=== PATIENT | male | born 1930 | race Caucasian/White ===

== ENCOUNTER 2016-10-10 14:00 | Observation (INO) | payer OTHER ==
[2016-10-10] MEDS ORDERED: FAMOTIDINE 20 MG/NACL 50 ML IV ONE (14:28)
--- NOTE | 2016-10-10 14:28 | EDPHY ---
H & P Time Seen by Provider: 10/10/16 14:11 HPI/ROS: CHIEF COMPLAINT: blood in stool HISTORY OF PRESENT ILLNESS: Patient is an 86-year-old male who presents to the emergency department with bright red blood and dark stools starting last evening. Patient has no other complaints. He had a bowel movement where he noticed bright red in the toilet bowl. He has no rectal pain. No lightheadedness or dizziness. No chest pain or shortness of breath. No abdominal pain. No nausea, vomiting or fever. The patient has a remote history of diverticulitis and cannot recall if he had bleeding during that episode. REVIEW OF SYSTEMS: My complete review of systems is negative except as mentioned in the HPI. Past Medical/Surgical History: Includes diverticulitis, detached retina, hypertension, back infection Past surgical history: The detached retinal repair, back surgery for infection Social history: The patient does not smoke, drink or use drugs. He is here with his . Smoking Status: Never smoked Physical Exam: Vitals noted GENERAL: Well-appearing, in no acute distress, alert. HEENT: Eyes normal to inspection, normal pharynx, no signs of dehydration. NECK: No thyromegaly, no lymphadenopathy, supple. RESPIRATORY: Clear to auscultation bilaterally, no rales, rhonchi or wheezing. CVS: Regular rate and rhythm, no rubs, murmurs, or gallops. ABDOMEN: Soft, nontender, nondistended, no organomegaly. Benign Rectal exam: No palpable mass. No tenderness palpation. There is cammie blood as well as dark stool. BACK: Normal to inspection, no CVA tenderness. SKIN: Normal color, no rash, warm, dry. No pallor. EXTREMITIES: No pedal edema, no calf tenderness, no joint swelling. NEURO/PSYCH: Alert and oriented, normal mood and affect, normal motor sensory exam. Constitutional: Initial Vital Signs Temperature (C) 36.6 C 10/10/16 14:03 Heart Rate 77 10/10/16 14:03 Respiratory Rate 18 10/10/16 14:03 Blood Pressure 216/94 H 10/10/16 14:03 O2 Sat (%) 86 L 10/10/16 14:03 O2 Delivery Mode Room Air Allergies/Adverse Reactions: No Known Allergies Allergy (Verified 10/10/16 14:25) Home Medications: Medication Instructions Recorded Finasteride [Proscar 5 MG (*)] 5 mg PO DAILY 10/10/16 Furosemide [Lasix] 40 mg PO 10/10/16 Lisinopril [Zestril 40 mg (*)] 40 mg PO 10/10/16 Potassium Chloride Po [Klor 20 meq PO DAILY 10/10/16 Packets 20 meq (*)] Propranolol HCl [Inderal 40mg (*)] 40 mg PO 10/10/16 Tamsulosin HCl [Flomax 0.4 MG (*)] 0.4 mg PO 10/10/16 Tolterodine Tartrate [Detrol LA 2 mg PO DAILY8 10/10/16 2MG (*)] amLODIPine BESYLATE [Norvasc 2.5 2.5 mg PO DAILY 10/10/16 mg (*)] Medical Decision Making - Diagnostics EKG Interpretation: Sinus rhythm at 61. Right bundle branch block. ED Course/Re-evaluation: In the emergency department I discussed possible etiologies with the patient. I answered all his questions. IV was placed. Laboratory studies were obtained. I reviewed the patient's laboratory studies. White count is 9. Hematocrit slightly low at 39. Chemistry panel is pending. Occult blood is positive. I rechecked the patient. He was stable during his stay. However patient was noted to have dark stool on his rectal exam. He also has active rectal bleeding. Because of this he will be admitted for observation. I discussed this with Dr. Leon from the hospital service who agreed to admit the patient. I discussed the plan with the patient and answered all his questions. Differential Diagnosis: My differential includes but is not limited to external hemorrhoid, internal hemorrhoid, diverticulitis, malignancy, mass, upper GI bleed - Data Points Laboratory Results: Laboratory Results 10/10/16 14:25 10/10/16 14:25 10/10/16 10/10/16 14:25 14:18 WBC 9.85 H 10^3/uL (3.80-9.50) RBC 4.45 10^6/uL (4.40-6.38) Hgb 13.0 L g/dL (13.7-17.5) Hct 39.6 L % (40.0-51.0) MCV 89.0 fL (81.5-99.8) MCH 29.2 pg (27.9-34.1) MCHC 32.8 g/dL (32.4-36.7) RDW 14.6 % (11.5-15.2) Plt Count 304 10^3/uL (150-400) MPV 9.0 fL (8.7-11.7) Neut % (Auto) 71.1 % (39.3-74.2) Lymph % (Auto) 16.9 % (15.0-45.0) [place] % (Auto) 8.5 % (4.5-13.0) Eos % (Auto) 2.5 % (0.6-7.6) Baso % (Auto) 0.5 % (0.3-1.7) Nucleat RBC Rel Count 0.0 % (0.0-0.2) Absolute Neuts (auto) 7.00 H 10^3/uL (1.70-6.50) Absolute Lymphs (auto) 1.66 10^3/uL (1.00-3.00) Absolute Monos (auto) 0.84 H 10^3/uL (0.30-0.80) Absolute Eos (auto) 0.25 10^3/uL (0.03-0.40) Absolute Basos (auto) 0.05 10^3/uL (0.02-0.10) Absolute Nucleated RBC 0.00 10^3/uL (0-0.01) Immature Gran % 0.5 % (0.0-1.1) Immature Gran # 0.05 10^3/uL (0.00-0.10) PT 12.3 SEC (12.0-15.0) INR 0.92 (0.83-1.16) APTT 34.1 SEC (23.0-38.0) Sodium 146 H mEq/L (134-144) Potassium 4.2 mEq/L (3.5-5.2) Chloride 110 mEq/L (97-110) Carbon Dioxide 24 mEq/l (22-31) Anion Gap 12 mEq/L (8-16) BUN 16 mg/dL (7-23) Creatinine 0.8 mg/dL (0.7-1.3) Estimated GFR > 60 Glucose 90 mg/dL (70-100) Calcium 9.4 mg/dL (8.5-10.4) Stool Occult Bld Scrn POSITIVE H (NEGATIVE) Medications Given: Discontinued Medications Famotidine/Sodium Chloride (Pepcid 20 Mg (Premix)) 50 mls @ 200 mls/hr IV EDNOW ONE Stop: 10/10/16 14:42 Last Admin: 10/10/16 14:49 Dose: 50 mls Departure - Departure Disposition: [facility] Inpatient Acute Clinical Impression: Rectal bleed Condition: Good Referrals: Ezequiel Lucero [Primary Care Provider] - As per Instructions
[2016-10-10 14:38] LABS: % IMMATURE GRANULYOCYTES 0.5 % (0.0-1.1); ABSOLUTE IMMATURE GRANULOCYTES 0.05 10^3/uL (0.00-0.10); ADD DIFF? NO; ADD MORPH? NO; ADD SCAN? NO; ATYPICAL LYMPHOCYTE FLAG 0 (0-99); FRAGMENT RBC FLAG 0 (0-99); HEMATOCRIT 39.6 % (40.0-51.0); LEFT SHIFT FLG 0 (0-99); LIPEMIA HEMOLYSIS FLAG 80 (0-99); MEAN CELL HEMOGLOBIN 29.2 pg (27.9-34.1); MEAN CELL HEMOGLOBIN CONCENTR. 32.8 g/dL (32.4-36.7); PLATELET CLUMPS FLAG 10 (0-99); PLATELET COUNT 304 10^3/uL (150-400); RED BLOOD CELL COUNT 4.45 10^6/uL (4.40-6.38); RED CELL DISTRIBUTION WIDTH 14.6 % (11.5-15.2)
--- NOTE | 2016-10-10 14:46 | CPEKG ---
Heart Rate: 61 RR Interval: 984 P-R Interval: 164 QRSD Interval: 142 QT Interval: 448 QTC Interval: 452 P [place]: 15 QRS [place]: 83 T Wave [place]: -26 EKG Severity - ABNORMAL ECG - EKG Impression: SINUS RHYTHM EKG Impression: RIGHT BUNDLE BRANCH BLOCK Electronically Signed By: Alexsandra Godwin 10-Oct-2016 16:33:27
[2016-10-10 14:49] LABS: APTT 34.1 SEC (23.0-38.0); INR 0.92 (0.83-1.16); PROTIME(PATIENT) 12.3 SEC (12.0-15.0)
[2016-10-10 15:14] LABS: ANION GAP 12 mEq/L (8-16); CALCIUM 9.4 mg/dL (8.5-10.4); CARBON DIOXIDE 24 mEq/l (22-31); CHLORIDE 110 mEq/L (97-110); CREATININE 0.8 mg/dL (0.7-1.3); GLOMERULAR FILTRATION RATE > 60; GLUCOSE 90 mg/dL (70-100); POTASSIUM 4.2 mEq/L (3.5-5.2); SODIUM 146 mEq/L (134-144)
[2016-10-10] MEDS ORDERED: NS 1,000 ML IV ONE (15:22)
[2016-10-10] MEDS ORDERED: TEMAZEPAM 15 MG CAP PO PRN (16:15)
[2016-10-10] MEDS ORDERED: ONDANSETRON DISINTEGRATING 4 MG TAB PO PRN (16:15)
[2016-10-10] MEDS ORDERED: ONDANSETRON 4 MG/2 ML VIAL IVP PRN (16:15)
[2016-10-10] MEDS ORDERED: ACETAMINOPHEN 325 MG TAB PO PRN (16:15)
--- NOTE | 2016-10-10 16:25 | PDGENHP ---
History and Physical - Chief Complaint rectal bleeding - History of Present Illness 86 yo male with h/o hypertension and diverticulosis presents to ED with new onset rectal bleeding. He awoke at 2 am and felt the urge to have a BM. He passed "dark stool" with some bright red blood. He had 4 BM's over the course of the next 4 hrs with similar stool and blood. He estimates approximately 1 cup of blood loss in total. He has had no abdominal pain and no fevers. He denies CP, SOB, dizziness or light-headedness. No palpitations. He has h/o hypertension, did not take his BP meds yet today. Last colonoscopy was 7-8 yrs ago, at which time he was told he had diverticulosis. No h/o prior GI bleeds. Vital signs are stable upon arrival to the ED. GI was consulted by the ED and pt is admitted for further management. History Information - Allergies/Home Medication List Allergies/Adverse Reactions: No Known Allergies Allergy (Verified 10/10/16 14:25) Home Medications: Finasteride [Proscar 5 MG (*)] 5 mg PO DAILY 10/10/16 [Last Taken 10/09/16] Furosemide [Lasix] 40 mg PO DAILY 10/10/16 [Last Taken 10/09/16] Lisinopril [Zestril 40 mg (*)] 40 mg PO DAILY 10/10/16 [Last Taken 10/09/16] Potassium Cl [Klor-Con 20 meq (*)] 20 meq PO HS 10/10/16 [Last Taken 10/09/16] Propranolol HCl [Inderal 40mg (*)] 40 mg PO DAILY 10/10/16 [Last Taken 10/09/16] Tamsulosin HCl [Flomax 0.4 MG (*)] 0.4 mg PO DAILY 10/10/16 [Last Taken 10/09/16 ] Tolterodine Tartrate [Detrol LA 2MG (*)] 2 mg PO DAILY 10/10/16 [Last Taken ] amLODIPine BESYLATE [Norvasc 2.5 mg (*)] 2.5 mg PO DAILY 10/10/16 [Last Taken ] I have personally reviewed and updated: family history, medical history, social history, surgical history - Past Medical History hypertension - Surgical History Additional surgical history: recent back surgery for an infection. recent retinal detachment - Family History Positive for: non-pertinent - Social History Smoking Status: Never smoked Alcohol Use: None Drug Use: None (Lives independently with his .) Review of Systems ROS: 10pt was reviewed & negative except for what was stated in HPI & below Physical Exam Temp Pulse Resp BP Pulse Ox 36.6 C 88 18 180/78 H 93 10/10/16 14:03 10/10/16 16:00 10/10/16 16:00 10/10/16 16:00 10/10/16 16:00 Constitutional: no apparent distress Eyes: PERRL Ears, Nose, Mouth, Throat: moist mucous membranes Cardiovascular: regular rate and rhythym Respiratory: no respiratory distress, clear to auscultation Gastrointestinal: normoactive bowel sounds, soft, non-tender abdomen Skin: warm Neurologic: AAOx3 Psychiatric: interacting appropriately Lab Data & Imaging Review 10/10/16 20:14 10/10/16 14:25 WBC 9.85 10^3/uL (3.80-9.50) H 10/10/16 14:25 RBC 4.45 10^6/uL (4.40-6.38) 10/10/16 14:25 Hgb 13.0 g/dL (13.7-17.5) L 10/10/16 14:25 Hct 39.6 % (40.0-51.0) L 10/10/16 14:25 MCV 89.0 fL (81.5-99.8) 10/10/16 14:25 MCH 29.2 pg (27.9-34.1) 10/10/16 14:25 MCHC 32.8 g/dL (32.4-36.7) 10/10/16 14:25 RDW 14.6 % (11.5-15.2) 10/10/16 14:25 Plt Count 304 10^3/uL (150-400) 10/10/16 14:25 MPV 9.0 fL (8.7-11.7) 10/10/16 14:25 Neut % (Auto) 71.1 % (39.3-74.2) 10/10/16 14:25 Lymph % (Auto) 16.9 % (15.0-45.0) 10/10/16 14:25 [place] % (Auto) 8.5 % (4.5-13.0) 10/10/16 14:25 Eos % (Auto) 2.5 % (0.6-7.6) 10/10/16 14:25 Baso % (Auto) 0.5 % (0.3-1.7) 10/10/16 14:25 Nucleat RBC Rel Count 0.0 % (0.0-0.2) 10/10/16 14:25 Absolute Neuts (auto) 7.00 10^3/uL (1.70-6.50) H 10/10/16 14:25 Absolute Lymphs (auto) 1.66 10^3/uL (1.00-3.00) 10/10/16 14:25 Absolute Monos (auto) 0.84 10^3/uL (0.30-0.80) H 10/10/16 14:25 Absolute Eos (auto) 0.25 10^3/uL (0.03-0.40) 10/10/16 14:25 Absolute Basos (auto) 0.05 10^3/uL (0.02-0.10) 10/10/16 14:25 Absolute Nucleated RBC 0.00 10^3/uL (0-0.01) 10/10/16 14:25 Immature Gran % 0.5 % (0.0-1.1) 10/10/16 14:25 Immature Gran # 0.05 10^3/uL (0.00-0.10) 10/10/16 14:25 PT 12.3 SEC (12.0-15.0) 10/10/16 14:25 INR 0.92 (0.83-1.16) 10/10/16 14:25 APTT 34.1 SEC (23.0-38.0) 10/10/16 14:25 Sodium 146 mEq/L (134-144) H 10/10/16 14:25 Potassium 4.2 mEq/L (3.5-5.2) 10/10/16 14:25 Chloride 110 mEq/L (97-110) 10/10/16 14:25 Carbon Dioxide 24 mEq/l (22-31) 10/10/16 14:25 Anion Gap 12 mEq/L (8-16) 10/10/16 14:25 BUN 16 mg/dL (7-23) 10/10/16 14:25 Creatinine 0.8 mg/dL (0.7-1.3) 10/10/16 14:25 Estimated GFR > 60 10/10/16 14:25 Glucose 90 mg/dL (70-100) 10/10/16 14:25 Calcium 9.4 mg/dL (8.5-10.4) 10/10/16 14:25 Stool Occult Bld Scrn POSITIVE (NEGATIVE) H 10/10/16 14:18 Assessment & Plan Assessment: Rectal bleeding: DDx includes possible diverticular bleed vs hemorrhoidal vs upper GI source. He is hemodynamically stable. Will follow q6h H&H, give IV PPI, monitor on telemetry. GI is consulted. He will be given a clear liquid diet and will defer to GI regarding plans for scope. Hypertension: BP elevated on arrival near 200 systolic. He has not taken his home meds. Will give his Lisinopril and Norvasc now with prn Hydralazine. Continue other meds once med rec is completed Full code DVT PPLX - SCD's Dispo - obs
[2016-10-10] MEDS: LISINOPRIL 40 MG TAB PO SCH (17:26)
[2016-10-10] MEDS ORDERED: GOLYTELY 4000 ML BTL PO ONE (19:14)
[2016-10-10] MEDS: hydrALAZINE 25 MG TAB PO PRN (19:39)
--- NOTE | 2016-10-10 19:40 | GCON ---
[f rep st] CONSULTATION REFERRING PHYSICIAN: Lazara Leon MD REASON FOR CONSULTATION: Rectal bleeding. CHIEF COMPLAINT: Rectal bleeding. HISTORY OF PRESENT ILLNESS: Briefly, Mr. Herrera is a pleasant 86-year-old male with a history of hypertension and diverticulosis, who presented to the emergency room today for the evaluation of rectal bleeding. He reports that he awoke early this a.m. with the urgent need to have a bowel movement. He describes having passed bright red and dark blood. He had several bowel movements over the course of the next several hours that were similarly emergent and filled with blood. He reports initially noticing mostly red blood , but also describing some dark blood. He believes he may have had a cup or more of blood with each bowel movement. He reported no abdominal pain. He denies vomiting or nausea. He reports no shortness of breath, dizziness, or lightheadedness. He further denies chest pain and palpitations. He reports that as the symptoms continued through the morning, he presented to the emergency room to seek a workup given that he was concerned about the bleeding. He reports he had a colonoscopy approximately 8 years ago. He reports no polyps or malignancy history. Further denies any family history of colon cancer or colon polyps. At that time, he was advised that would likely be his last colonoscopy. Since being in the hospital, he has had no further bowel movements, and reports he has passed some gas. ALLERGIES: None. MEDICATIONS ON ADMISSION: Included Proscar, Lasix, Zestril, Inderal, Flomax, Detrol, Norvasc, and potassium. PAST MEDICAL HISTORY: Includes hypertension and back disease for which he has had back surgery. He had complications of his back surgery with infection. FAMILY HISTORY: Negative for colon cancer and colon polyps. SOCIAL HISTORY: He does not smoke. He does not use alcohol. He does not use drugs. REVIEW OF SYSTEMS: A complete 14 system review was undertaken with the patient and is negative, except for those details described in the history of present illness. PHYSICAL EXAM: GENERAL: This is an elderly pleasant male, in no apparent distress. HEENT: His pupils are equally round, reactive to light and accommodation. His sclerae are nonicteric. His oropharynx is clear. NECK: Supple without lymphadenopathy. HEART: Regular without murmur. LUNGS: Clear with good respiratory effort. ABDOMEN: Soft. Nondistended without tenderness. There is no rebound or guarding. EXTREMITIES: Free of cyanosis, clubbing, edema. NEURO: Grossly nonfocal. SKIN: Warm and dry. MUSCULOSKELETAL: His joints show no arthritis. PSYCH: Reveals normal mood and affect. LABORATORY: Shows a white count of 9.8, hemoglobin of 13.0, hematocrit of 39.6. INR of 0.92. Basic metabolic panel is normal. Prior hematocrits of note have been between 32 and 41 over the last many years. Most recently through 2016, his hematocrit has been between 36 and 42. IMPRESSION AND PLAN: Bright red blood. The differential diagnosis for his bleeding is broad. It likely is a lower GI source and given his known history of diverticulosis, that seems likely. The differential however, could include polyps, AVM, malignancy, or even upper intestinal sources of bleeding. At this time, I recommend he undergo an endoscopic evaluation for sources of bleeding. This should include colonoscopy, as well as upper endoscopy given the dark nature of his blood and the differential diagnosis that contains upper sources, as well as lower sources. He can have clear liquids through the rest of today and we will initiate a split -dose laxative prep starting today for endoscopic evaluation tomorrow. Given his obesity and his age, and his sleep apnea, he will be at increased risk of conscious sedation, but I do not think those risks outweigh the potential benefits. /[id number]/MODL MTDD
[2016-10-10 20:49] LABS: HEMATOCRIT 33.6 % (40.0-51.0)
[2016-10-10] MEDS ORDERED: POTASSIUM CL 20 MEQ TAB PO SCH (21:00)
[2016-10-10] MEDS: PANTOPRAZOLE SODIUM 40 MG in NS 100 ML IV SCH (21:33)
[2016-10-11 01:52] LABS: HEMATOCRIT 33.2 % (40.0-51.0)
[2016-10-11] MEDS: hydrALAZINE 25 MG TAB PO PRN (03:55)
[2016-10-11 04:30] LABS: ANION GAP 7 mEq/L (8-16); CALCIUM 8.7 mg/dL (8.5-10.4); CARBON DIOXIDE 24 mEq/l (22-31); CHLORIDE 115 mEq/L (97-110); CREATININE 0.8 mg/dL (0.7-1.3); GLOMERULAR FILTRATION RATE > 60; GLUCOSE 78 mg/dL (70-100); POTASSIUM 4.2 mEq/L (3.5-5.2); SODIUM 146 mEq/L (134-144)
[2016-10-11 08:25] LABS: HEMATOCRIT 34.1 % (40.0-51.0); HEMOGLOBIN 11.3 g/dL (13.7-17.5)
[2016-10-11] MEDS: PANTOPRAZOLE SODIUM 40 MG in NS 100 ML IV SCH (08:40)
[2016-10-11] MEDS ORDERED: FUROSEMIDE 40 MG TAB PO SCH (09:00)
[2016-10-11] MEDS ORDERED: TOLTERODINE TARTRATE 2 MG EXT REL CAP PO SCH (09:00)
[2016-10-11] MEDS ORDERED: FINASTERIDE 5 MG TAB PO SCH (09:00)
[2016-10-11] MEDS ORDERED: PROPRANOLOL HCL 40 MG TAB PO SCH (09:00)
[2016-10-11] MEDS ORDERED: TAMSULOSIN HCL 0.4 MG CAP PO SCH (09:00)
[2016-10-11] MEDS ORDERED: LISINOPRIL 40 MG TAB PO SCH (09:00)
[2016-10-11] MEDS ORDERED: PROPOFOL/EMULSION 500 MG/50 ML BOTTLE IV ONE (13:13)
[2016-10-11] MEDS ORDERED: epHEDrine SULFATE 10 MG/ML SYR ONE (13:39)
--- NOTE | 2016-10-11 14:03 | SUROPNOTE ---
SOO Operative Report - Surgery BRIEF GI NOTE (full report pending) EGD/COLON Indication: melena, rectal bleeding Complications: none Meds: per anesthesia Findings: EGD - nl esophagus - mild-moderate gastritis (bx'd) - nl duodenum COLON - bright red blood was found in left colon - no active bleeding - multiple tics throughout colon, most concentrated in left colon - normal bilious effluent from IC valve - moderate hemorrhoids IMPRESSION 1. GI BLEED - suspect self limited diverticular or hemorrhoid related bleeding - ok to advance diet and dc home if clinically well - if has recurrent bleeding, will need to consider additional eval - will sign off, call with questions
--- NOTE | 2016-10-11 14:24 | GPN ---
[f rep st] PROCEDURE NOTE PROCEDURES: Upper endoscopy and lower endoscopy. INDICATIONS: Melena and hematochezia. MEDICATIONS USED: Anesthesia was administered by our Anesthesia colleagues. This was deemed necessary due to the patient's underlying obesity and chronic obstructive sleep apnea. COMPLICATIONS: None acutely. DESCRIPTION OF PROCEDURE: After informed consent was obtained, the patient was placed in the left lateral decubitus position, and the forward viewing upper endoscope was advanced through the mouth into the proximal duodenum. Retroflex views in the gastric cardia were obtained. The scope was then withdrawn. The gurney was rotated 180 degrees. The forward viewing colonoscope was then advanced through the rectum into the cecum. The cecum was identified by the appendiceal orifice and the ileocecal valve. FINDINGS: Upper endoscopy: 1. Mild gastritis was visualized throughout the entire gastric antrum. There were no ulcerations. There was no evidence of acute bleeding. Biopsies were obtained. 2. The esophagus looked normal. 3. The duodenal appeared normal. Colonoscopy: 1. Multiple diverticula were discovered through the sigmoid colon. There were also some discovered in the right-side colon. 2. Bright red blood was visualized throughout the left colon in the area of the diverticula. There was no bright red blood visualized in the right colon or in the effluent coming through the ileocecal valve. 3. Internal hemorrhoids were also visualized. These were grade 2-3, but nonbleeding. There was no evidence of thrombosis. IMPRESSION AND RECOMMENDATIONS: Overall, I suspect that Mr. Herrera has had a self-limited bleeding event from diverticula. It is possible that he had a self-limited bleeding event from hemorrhoids as well. There were no other more sinister lesions, such as polyps , cancers, ulcers, etc. At this time, I recommend he advance his diet and be considered for discharge home if he is feeling well. Should he have recurrence of bleeding, we would consider a repeat bleeding workup which might include endoscopic evaluation and /or x-ray. /[id number]/MODL MTDD
--- NOTE | 2016-10-11 15:44 | GDS ---
[f rep st] DISCHARGE SUMMARY DISCHARGE DIAGNOSIS: Gastrointestinal bleed. PHYSICAL EXAM: VITAL SIGNS: Afebrile at 36.4, pulse is 59, respiratory rate is 18, blood pressure i s 155/51. He is saturating 96% on room air. I have seen and evaluated the patient on the day of dis charge. HOSPITAL COURSE: Mr. Herrera is an 86-year-old male, who presented to the emergency room with complai nts of rectal bleeding. He was evaluated during this hospitalization with a colonoscopy, as well as endoscopy. He received a consultation from Dr. Moon of Gastroenterology. His colonoscopy represen bryce hemorrhoids with likely self-limiting diverticular bleed. His EGD noted mild gastritis. The pat ient has had no further signs of gastrointestinal bleeding. His laboratory evaluation has remained s table. His vital signs are within normal limits. He will be initiated on oral Protonix which a pres cription has been provided, and he will be discharged home to follow up in the outpatient setting wit h his primary care physician. PENDING STUDIES: Include biopsy pathology. DISCHARGE MEDICATIONS: Please refer to EMR form. I have provided the patient a prescription for Pro tonix 40 mg daily, #90. FOLLOWUP: Will be with Dr. Ezequiel Lucero, his primary care physician. I have discussed the patient's care and discharge plan with Dr. Moon of Gastroenterology. He is in agreement with this plan. /[id number]/MODL
[2016-10-11] MEDS: LISINOPRIL 40 MG TAB PO SCH (16:25)
[2016-10-11 16:26] VITALS: BP 187/92; PULSE 60
[2016-10-11 16:30] VITALS: RESP 19; TEMP 97.9
[2016-10-11 16:42] VITALS: O2SAT 88
== END 2016-10-11 17:58 | disposition home or self-care (01) ==
LOC: F3E 16:51
PROVIDERS: ADMIT Hospitalist; ATTEND Hospitalist
DX: K92.2 Gastrointestinal hemorrhage, unspecified (principal); K29.70 Gastritis, unspecified, without bleeding; K57.30 Diverticulosis of large intestine without perforation or abscess without bleeding; K64.8 Other hemorrhoids; G47.33 Obstructive sleep apnea (adult) (pediatric); E66.9 Obesity, unspecified; I10 Essential (primary) hypertension
CPT/HCPCS: 43239; 45378; 88305; 88342; 93005; G0378; J2704; 96365

== ENCOUNTER 2017-11-01 22:00 | Emergency (ER) | payer OTHER ==
--- NOTE | 2017-11-01 22:16 | CPEKG ---
Heart Rate: 47 RR Interval: 1277 P-R Interval: 177 QRSD Interval: 152 QT Interval: 508 QTC Interval: 450 P [place]: 5 QRS [place]: 77 T Wave [place]: -42 EKG Severity - ABNORMAL ECG - EKG Impression: SINUS BRADYCARDIA EKG Impression: RIGHT BUNDLE BRANCH BLOCK Electronically Signed By: Alessandro Sawyer 02-Nov-2017 05:29:09
--- NOTE | 2017-11-01 22:19 | EDPHY ---
H & P Stated Complaint: trip and fall Time Seen by Provider: 11/01/17 22:15 HPI/ROS: HPI: This 87-year-old male who presents with Chief Complaint: Trip and fall onto his knee Location: Bilateral knee Quality: Fall Duration: Prior to arrival Signs and Symptoms: No bleeding, no radiation, no numbness, no weakness, no tingling, no incontinence, no decreased range of motion, no swelling, no pain Timing: Severity: Context: Patient arrived via EMS with no complaints. He reports that his was concerned as he is unable to get up off the floor after he accidentally tripped in the [place] and fell onto both of his knees. He reports that he felt some pain at 1st but has decreased during the ride to the emergency room. EMS reports that patient did not want to come to the ER for further evaluation but his insisted. They have been for over 50+ years. He denies any chest pain/LOC/shortness of breath/urinary symptoms/abdominal pain/nausea/ vomiting/neck pain. He reports that his heart rate normally runs low. He he takes for blood pressure medications but did not take them today. He reports that he wears oxygen 2 L nasal cannula at night for sleep apnea. Will wait for to arrive to gather further information. and son her now at bedside. reports that patient was in the bedroom and she could hear him trip and fall. He was on his knees when she arrived in their bedroom. He was alert and talking. She reports that he is too heavy for her to lift him up so she called EMS. He wears a hearing aid in for the last 4 days he has been ignoring her more than usual. She is not sure if there is something wrong with his head or refused nor in her. reports that he takes all of his medications at night and has not taken them tonight. Unsure of dosage of medications. Patient denies chest pain/shortness of breath/abdominal pain/headache/dizziness/weakness /urinary symptoms. Modifying Factors: None Comment: ROS: see HPI Constitutional: No fever, no chills, no weight loss Eyes: No blurred vision Respiratory: No shortness of breath, no cough Cardiovascular: No chest pain Gastrointestinal: No nausea, no vomiting no diarrhea Genitourinary: No dysuria Extremities: No myalgias Neurologic: No weakness, no numbness Skin: No rashes Hematologic: No bruising, no bleeding MEDICAL/SURGICAL/SOCIAL HISTORY: PMH- Hypertension, DIVERTICULOSIS, ENRIKE PSH- DETACHED RETINA REPAIR B EYE, BACK SURGERY S/P 6MONTHS AGO. Social history: for over 50 years. CONSTITUTIONAL: Pleasant, cooperative elderly white male, awake and alert, no obvious distress HEENT: Atraumatic and normocephalic, PERRL, EOMI. no globe entrapment, no raccoon eyes. no Morris signs.Tympanic membranes clear. No tympanic membrane rupture. Nares patent; no septal hematoma. Oropharynx clear, no exudate and moist pink mucosa. No malocclusion. no dental trauma. Airway patent. No lymphadenopathy. NECK: supple, no midline tenderness, flexion 45 degrees, extension 45 degrees, right and left lateral flexion 45 degrees. No meningismus. Cardiovascular: Normal S1/S2, bradycardia, regular rhythm, without murmur rub or gallop. PULMONARY/CHEST: Symmetrical and nontender. no crepitus. Clear to auscultation bilaterally. Good air movement. No accessory muscle usage. ABDOMEN: Soft, nondistended, nontender, no ecchymosis, no rebound, no guarding , no peritoneal signs, no masses or organomegaly. No CVAT. PELVIC: no pain with rocking; bilateral hips flexion 125 degrees, extension 30 degrees, with no pain internal rotation and no pain external rotation. BACK: No midline tenderness, no paraspinous spasm, deep tendon reflexes 2/2, no pain with straight leg raise EXTREMITIES: 2/2 pulses, bilateral KNEE: Superficial abrasion noted to anterior portion approximately 2 cm annular, no effusion, medial and lateral joint line tenderness, full extension to 180, flexion to 120. No pain with varus and valgus exam. No pain with anterior drawer or posterior drawer test. no deformities, no clubbing, no cyanosis or edema. NEUROLOGICAL: no focal neuro deficits. GCS 15. SKIN: Warm and dry, pallor,no erythema. no rash. Good capillary refill. Source: Patient, Family ( and son) Exam Limitations: No limitations - Personal History Current Tetanus/Diphtheria Vaccine: Yes Current Tetanus Diphtheria and Acellular Pertussis (TDAP): Yes - Medical/Surgical History Hx Asthma: No Hx Chronic Respiratory Disease: No Hx Diabetes: No Hx Cardiac Disease: Yes Hx Renal Disease: No Hx Cirrhosis: No Hx Alcoholism: No Hx HIV/AIDS: No Hx Splenectomy or Spleen Trauma: No Other PMH: PMH- Hypertension, DIVERTICULOSIS. PSH- DETACHED RETINA REPAIR B EYE , BACK SURGERY S/P 6MONTHS AGO. - Social History Smoking Status: Never smoked Constitutional: Initial Vital Signs Temperature (C) 36.6 C 11/01/17 22:07 Heart Rate 50 L 11/01/17 22:07 Respiratory Rate 16 11/01/17 22:07 Blood Pressure 235/85 H 11/01/17 22:07 O2 Sat (%) 92 11/01/17 22:07 O2 Delivery Mode Nasal Cannula Allergies/Adverse Reactions: No Known Allergies Allergy (Verified 11/01/17 22:05) Home Medications: Medication Instructions Recorded Finasteride [Proscar 5 MG (*)] 5 mg PO DAILY 10/10/16 Furosemide [Lasix 40 MG (*)] 40 mg PO DAILY 10/10/16 Lisinopril [Zestril 40 mg (*)] 40 mg PO DAILY 10/10/16 Potassium Cl [Klor-Con 20 meq (*)] 20 meq PO HS 10/10/16 Propranolol HCl [Inderal 40mg (*)] 40 mg PO DAILY 10/10/16 Tamsulosin HCl [Flomax 0.4 MG (*)] 0.4 mg PO DAILY 10/10/16 Tolterodine Tartrate [Detrol LA 2 mg PO DAILY 10/10/16 2MG (*)] amLODIPine BESYLATE [Norvasc 2.5 2.5 mg PO DAILY 10/10/16 mg (*)] Acetaminophen [Tylenol 325mg (*)] 650 mg PO Q4HRS PRN #0 tab 10/11/16 Pantoprazole Sodium [Protonix 40mg 40 mg PO DAILY #90 tab 10/11/16 (*)] Medical Decision Making - Diagnostics EKG Interpretation: 12 lead EKG: Indication: Fall Rhythm: sinus bradycardia, rate 47 bpm [place]: Normal Intervals: Normal QRS: RBBB ST segments: Nonspecific changes EKG INTERPRETATION: Right bundle-branch block is old, acute ischemic changes The 12 lead EKG was interpreted by myself and with attending. Imaging Results: Imaging Impressions Head CT 11/01/17 22:37 Impression: 1. Moderate atrophy. 2. No acute hemorrhage, hydrocephalus, or mass effect. 3. Cerebrovascular atherosclerosis. 4. No definite acute infarct. 5. Moderate microvascular ischemic gliosis. 6. No epidural or subdural hematoma. Findings and recommendations discussed with Emergency Department physician, Kayy Forman at 23:09 hour, 11/01/2017. Final report concurs with initial preliminary interpretation. ED Course/Re-evaluation: Bilateral knee x-ray, head CT scan, EKG, labs, urinalysis ordered Vital signs reviewed upon arrival: Heart rate 45-55 beats per minute with significant elevated blood pressure; son left to get evening blood pressure medications as unsure of dosage. 2310: Repeat blood pressure is systolic 180/[address] scan shows no acute intracranial process. Labs reviewed and show no gross abnormality. Urinalysis shows no signs of infection. reports that the patient's blood pressure is always elevated when he goes to the Dr. 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 Patient was ambulated; walked up and down the [place] without any dizziness/chest pain/shortness of breath I offered admission for tighter blood pressure control and close monitoring; but patient//son want to be discharged home. We will increase his amlodipine and decrease Propranolol with close follow-up with PCP and Cardiology. Son reports that he will be making daily house calls and will make sure that his father gets to the appropriate appointments. This patient was seen under the supervision of my secondary supervising physician. I evaluated care for this patient independently. Differential Diagnosis: Dizziness including but not limited to peripheral and central causes of vertigo , orthostatic causes including dehydration, and blood loss. - Data Points Laboratory Results: Laboratory Results 11/01/17 22:20 11/01/17 22:20 11/01/17 11/01/17 11/01/17 23:20 22:20 22:20 WBC 8.76 10^3/uL 10^3/uL (3.80-9.50) RBC 4.77 10^6/uL 10^6/uL (4.40-6.38) Hgb 14.9 g/dL g/dL (13.7-17.5) Hct 43.1 % % (40.0-51.0) MCV 90.4 fL fL (81.5-99.8) MCH 31.2 pg pg (27.9-34.1) MCHC 34.6 g/dL g/dL (32.4-36.7) RDW 14.2 % % (11.5-15.2) Plt Count 231 10^3/uL 10^3/uL (150-400) MPV 8.9 fL fL (8.7-11.7) Neut % (Auto) 74.1 % % (39.3-74.2) Lymph % (Auto) 9.8 % L % (15.0-45.0) [place] % (Auto) 12.1 % % (4.5-13.0) Eos % (Auto) 3.3 % % (0.6-7.6) Baso % (Auto) 0.5 % % (0.3-1.7) Nucleat RBC Rel Count 0.0 % % (0.0-0.2) Absolute Neuts (auto) 6.49 10^3/uL 10^3/uL (1.70-6.50) Absolute Lymphs (auto) 0.86 10^3/uL L 10^3/uL (1.00-3.00) Absolute Monos (auto) 1.06 10^3/uL H 10^3/uL (0.30-0.80) Absolute Eos (auto) 0.29 10^3/uL 10^3/uL (0.03-0.40) Absolute Basos (auto) 0.04 10^3/uL 10^3/uL (0.02-0.10) Absolute Nucleated RBC 0.00 10^3/uL 10^3/uL (0-0.01) Immature Gran % 0.2 % % (0.0-1.1) Immature Gran # 0.02 10^3/uL 10^3/uL (0.00-0.10) Sodium 145 mEq/L mEq/L (135-145) Potassium 4.1 mEq/L mEq/L (3.5-5.2) Chloride 113 mEq/L H mEq/L (97-110) Carbon Dioxide 22 mEq/l mEq/l (22-31) Anion Gap 10 mEq/L mEq/L (8-16) BUN 22 mg/dL mg/dL (7-23) Creatinine 0.9 mg/dL mg/dL (0.7-1.3) Estimated GFR > 60 Glucose 107 mg/dL H mg/dL (70-100) Calcium 9.7 mg/dL mg/dL (8.5-10.4) Total Bilirubin 0.6 mg/dL mg/dL (0.1-1.4) Conjugated Bilirubin 0.3 mg/dL mg/dL (0.0-0.5) Unconjugated Bilirubin 0.3 mg/dL mg/dL (0.0-1.1) AST 20 IU/L IU/L (17-59) ALT 26 IU/L IU/L (21-72) Alkaline Phosphatase 113 IU/L IU/L (38-126) Troponin I < 0.012 ng/mL ng/mL (0.000-0.034) Total Protein 6.6 g/dL g/dL (6.3-8.2) Albumin 3.9 g/dL g/dL (3.5-5.0) Urine Color YELLOW Urine Appearance HAZY Urine pH 6.0 (5.0-7.5) Ur Specific [place] 1.020 (1.002-1.030) Urine Protein NEGATIVE (NEGATIVE) Urine Ketones NEGATIVE (NEGATIVE) Urine Blood 1+ H (NEGATIVE) Urine Nitrate NEGATIVE (NEGATIVE) Urine Bilirubin NEGATIVE (NEGATIVE) Urine Urobilinogen NEGATIVE EU EU (0.2-1.0) Ur Leukocyte Esterase NEGATIVE (NEGATIVE) Urine RBC 5-10 /hpf H /hpf (0-3) Urine WBC 1-3 /hpf /hpf (0-3) Ur Epithelial Cells Not Reported Urine Mucus TRACE /lpf /lpf (NONE-1+) Urine Glucose NEGATIVE (NEGATIVE) Departure - Departure Disposition: Home, Routine, Self-Care Clinical Impression: Essential (primary) hypertension, Bradycardia with less than 60 beats per minute Adverse effect of beta-davis Qualifiers: Encounter type: initial encounter Qualified Code(s): T44.7X5A - Adverse effect of beta-adrenoreceptor antagonists, initial encounter Condition: Good Instructions: Bradycardia (ED), Hypertension (ED) Additional Instructions: Continue to take Lisinopril and Lasix as prescribed. Increase Amlodipine from 2.5 mg to 5 mg daily. Decrease Propranolol from 40 mg to 20 mg daily. Take patient's blood pressure tonight before bed and in the morning. Follow-up with your primary care provider in the next 2-3 days for blood pressure and heart rate monitoring. Follow-up with Cardiology in the next 1 week to discuss hypertension and bradycardia. Do not drive your vehicle until you are cleared by a physician. If at any time; patient develops chest pain, shortness of breath, intractable headache, mental status changes; return to the emergency room immediately. Referrals: Ezequiel Lucero [Primary Care Provider] - As per Instructions Francisco Wood MD [Medical Doctor] - As per Instructions
[2017-11-01 22:31] LABS: PLATELET COUNT 231 10^3/uL (150-400)
[2017-11-02 00:14] VITALS: BP 194/81; PULSE 46; RESP 20; TEMP 97.5; O2SAT 94
== END 2017-11-02 00:19 | disposition home or self-care (01) ==
LOC: EDUNIT#
DX: R00.1 Bradycardia, unspecified (principal); T44.7X5A Adverse effect of beta-adrenoreceptor antagonists, initial encounter; I10 Essential (primary) hypertension

== ENCOUNTER 2018-03-01 12:23 | Inpatient (IN) | payer OTHER ==
--- NOTE | 2018-03-01 13:24 | EDPHY ---
H & P Stated Complaint: poss sepsis Time Seen by Provider: 03/01/18 13:12 HPI/ROS: CHIEF COMPLAINT: Shortness of breath, vomiting Limitations: Dementia, patient unable to give any clinical history HISTORY OF PRESENT ILLNESS: 87-year-old male presents with shortness of breath and vomiting. He had a Lemons catheter in place this morning and apparently was suppose to discontinue the Lemons catheter. When the Lemons catheter was removed , he had a copious amount of gross hematuria. EMS was called and on their arrival, he was very short of breath and had multiple episodes of vomiting. IV normal saline 1 L and Zofran 4 mg IV given. Oxygen applied for shortness of breath. REVIEW OF SYSTEMS: Unable to determine - Personal History Current Tetanus Diphtheria and Acellular Pertussis (TDAP): Unsure - Medical/Surgical History Hx Asthma: No Hx Chronic Respiratory Disease: No Hx Diabetes: No Hx Cardiac Disease: Yes Hx Renal Disease: No Hx Cirrhosis: No Hx Alcoholism: No Hx HIV/AIDS: No Hx Splenectomy or Spleen Trauma: No Other PMH: PMH- Hypertension, DIVERTICULOSIS. PSH- DETACHED RETINA REPAIR B EYE , BACK SURGERY S/P 6MONTHS AGO. - Social History Smoking Status: Never smoked - Physical Exam Exam: General Appearance: Alert, pleasant Eyes: Pupils equal and round, no conjunctival pallor ENT, Mouth: Mucous membranes dry Neck: Normal inspection Respiratory: Tachypnea, Rales at the right lung base Cardiovascular: Regular tachycardia Gastrointestinal: Abdomen is soft and nontender Genitourinary: Dripping bright red blood from urethral orifice Neurological: Alert, oriented to self, moves all extremities Skin: Warm and dry Extremities: Normal inspection Psychiatric: Mood and affect normal Constitutional: Initial Vital Signs Temperature (C) 38.7 C H 03/01/18 12:42 Heart Rate 108 H 03/01/18 12:42 Respiratory Rate 40 H 03/01/18 12:42 Blood Pressure 213/104 H 03/01/18 12:42 O2 Sat (%) 84 L 03/01/18 12:42 O2 Delivery Mode Oxymask O2 (L/minute) 10 Allergies/Adverse Reactions: No Known Allergies Allergy (Verified 11/01/17 22:05) Home Medications: Medication Instructions Recorded Finasteride [Proscar 5 MG (*)] 5 mg PO DAILY 10/10/16 Furosemide [Lasix 40 MG (*)] 40 mg PO DAILY 10/10/16 Lisinopril [Zestril 40 mg (*)] 40 mg PO DAILY 10/10/16 Potassium Cl [Klor-Con 20 meq (*)] 20 meq PO HS 10/10/16 Propranolol HCl [Inderal 40mg (*)] 20 mg PO BID 10/10/16 Tamsulosin HCl [Flomax 0.4 MG (*)] 0.4 mg PO DAILY 10/10/16 Tolterodine Tartrate [Detrol LA 2 mg PO DAILY 10/10/16 2MG (*)] amLODIPine BESYLATE [Norvasc 2.5 2.5 mg PO DAILY 10/10/16 mg (*)] Pantoprazole Sodium [Protonix 40mg 40 mg PO BID 03/01/18 (*)] Medical Decision Making - Diagnostics EKG Interpretation: EKG interpreted by me reveals normal sinus rhythm, rate 94, right bundle branch block. Interpretation abnormal EKG Imaging Results: Imaging Impressions Chest X-Ray 03/01/18 13:14 Impression: Mild patchy atelectasis or scarring in the lower lobes bilaterally, without focal infiltrate or pleural effusion.. ED Course/Re-evaluation: This patient presents with shortness of breath, fever and vomiting. He meets SIRS criteria with tachycardia and fever. Initial lactate is 2.6. IV fluids per the sepsis protocol initiated. Repeat lactate is 2.8. Chest x-ray does not reveal an obvious infiltrate, however I suspect that he has pneumonia. Blood cultures were drawn and Levaquin IV given for pneumonia. After IV fluids and Tylenol, the patient's heart rate normalized and he looked much better. He was still unable to provide any clinical history. A Lemons catheter was placed for gross hematuria. After irrigation, the hematuria resolved and the urine is clear. The hospitalist service was consulted for admission. I spent a total of 35 minutes of critical care time in obtaining history, performing a physical exam, bedside monitoring of interventions, collecting and interpreting tests and discussion with consultants but not including time spent performing procedures. Organ at risk: pulmonary Differential Diagnosis: Differential diagnosis includes pyelonephritis, cholecystitis, influenza, cellulitis, pneumonia, abscess, meningitis. - Data Points Laboratory Results: Laboratory Results 03/01/18 12:30 03/01/18 12:30 03/01/18 03/01/18 03/01/18 13:50 12:30 12:30 WBC RBC Hgb Hct MCV MCH MCHC RDW Plt Count MPV Neut % (Auto) Lymph % (Auto) [place] % (Auto) Eos % (Auto) Baso % (Auto) Nucleat RBC Rel Count Absolute Neuts (auto) Absolute Lymphs (auto) Absolute Monos (auto) Absolute Eos (auto) Absolute Basos (auto) Absolute Nucleated RBC Immature Gran % Seg Neutrophils % Band Neutrophils % Lymphocytes % Monocytes % Eosinophils % Basophils % Metamyelocytes % Myelocytes % Promyelocytes % Blast Cells % Immature Gran # Absolute Seg Neuts Absolute Band Neuts Absolute Lymphocytes Absolute Monocytes Absolute Eosinophils Absolute Basophils Absolute Metamyelocyte Absolute Myelocytes Absolute Promyelocytes Absolute Plasma Cells RBC/WBC/PLT Morphology Absolute Blast Cells Plasma Cells % Platelet Estimate PT 12.9 SEC SEC (12.0-15.0) INR 0.95 (0.83-1.16) APTT 25.2 SEC SEC (23.0-38.0) VBG Lactic Acid 2.8 mmol/L H mmol/L (0.7-2.1) Sodium 148 mEq/L H mEq/L (135-145) Potassium 4.7 mEq/L mEq/L (3.3-5.0) Chloride 107 mEq/L mEq/L (97-110) Carbon Dioxide 26 mEq/l mEq/l (22-31) Anion Gap 15 mEq/L mEq/L (8-16) BUN 19 mg/dL mg/dL (7-23) Creatinine 0.9 mg/dL mg/dL (0.7-1.3) Estimated GFR > 60 Glucose 104 mg/dL H mg/dL (70-100) Calcium 9.7 mg/dL mg/dL (8.5-10.4) Total Bilirubin 1.1 mg/dL mg/dL (0.1-1.4) 03/01/18 03/01/18 12:30 12:30 WBC 9.51 10^3/uL H 10^3/uL (3.80-9.50) RBC 5.28 10^6/uL 10^6/uL (4.40-6.38) Hgb 15.9 g/dL g/dL (13.7-17.5) Hct 49.8 % % (40.0-51.0) MCV 94.3 fL fL (81.5-99.8) MCH 30.1 pg pg (27.9-34.1) MCHC 31.9 g/dL L g/dL (32.4-36.7) RDW 14.2 % % (11.5-15.2) Plt Count 309 10^3/uL 10^3/uL (150-400) MPV 9.4 fL fL (8.7-11.7) Neut % (Auto) Not Reported Lymph % (Auto) Not Reported [place] % (Auto) Not Reported Eos % (Auto) Not Reported Baso % (Auto) Not Reported Nucleat RBC Rel Count Not Reported Absolute Neuts (auto) Not Reported Absolute Lymphs (auto) Not Reported Absolute Monos (auto) Not Reported Absolute Eos (auto) Not Reported Absolute Basos (auto) Not Reported Absolute Nucleated RBC Not Reported Immature Gran % Not Reported Seg Neutrophils % 82.8 % % Band Neutrophils % 13.2 % % Lymphocytes % 1.0 % % Monocytes % 2.0 % % Eosinophils % 0 % % Basophils % 0 % % Metamyelocytes % 0 % % Myelocytes % 1.0 % % Promyelocytes % 0 % % Blast Cells % 0 % % Immature Gran # Not Reported Absolute Seg Neuts 7.87 10^/uL H 10^/uL (1.70-6.50) Absolute Band Neuts 1.26 10^3/uL H 10^3/uL (0.00-0.70) Absolute Lymphocytes 0.10 10^3/uL L 10^3/uL (1.00-3.00) Absolute Monocytes 0.19 10^3/uL L 10^3/uL (0.30-0.80) Absolute Eosinophils 0.00 10^3/uL L 10^3/uL (0.03-0.40) Absolute Basophils 0.00 10^3/uL L 10^3/uL (0.02-0.10) Absolute Metamyelocyte 0.00 10^3/mL 10^3/mL (0.00-0.00) Absolute Myelocytes 0.10 10^3/mL H 10^3/mL (0.00-0.00) Absolute Promyelocytes 0.00 10^3/uL 10^3/uL (0.00-0.00) Absolute Plasma Cells 0.00 10^3/uL 10^3/uL (0.00-0.00) RBC/WBC/PLT Morphology NORMAL (NORMAL) Absolute Blast Cells 0.00 10^3/uL 10^3/uL (0.00-0.00) Plasma Cells % 0 % % Platelet Estimate ADEQUATE (ADEQ) PT INR APTT VBG Lactic Acid 2.6 mmol/L H mmol/L (0.7-2.1) Sodium Potassium Chloride Carbon Dioxide Anion Gap BUN Creatinine Estimated GFR Glucose Calcium Total Bilirubin Microbiology Results: MICROBIOLOGY 03/01/18 14:30 Nasal, Sinus - Swab Respiratory Panel (PCR) - Final No Organism Detected Medications Given: Sodium Chloride (Ns) 2,200 mls @ 366.6666 mls/hr 30 ml/kg infuse over 6 hr ( 2200 ml) IV EDNOW ONE PRN Reason: Protocol Stop: 03/01/18 19:33 Last Admin: 03/01/18 14:12 Dose: 2,200 mls Discontinued Medications Acetaminophen (Tylenol) 650 mg PO EDNOW ONE Stop: 03/01/18 13:28 Last Admin: 03/01/18 13:54 Dose: 650 mg Levofloxacin/Dextrose (Levaquin 750 Mg (Premix)) 150 mls @ 100 mls/hr IV EDNOW ONE PRN Reason: Protocol Stop: 03/01/18 16:05 Last Admin: 03/01/18 14:43 Dose: 150 mls Departure - Departure Disposition: [facility] Inpatient Acute Clinical Impression: Severe sepsis Pneumonia Qualifiers: Pneumonia type: due to unspecified organism Laterality: left Lung location: lower lobe of lung Qualified Code(s): J18.1 - Lobar pneumonia, unspecified organism Condition: Serious
[2018-03-01 13:27] LABS: PLATELET COUNT 309 10^3/uL (150-400)
[2018-03-01] MEDS ORDERED: ACETAMINOPHEN 325 MG TAB PO ONE (13:27)
[2018-03-01] MEDS ORDERED: NS 2,200 ML IV ONE (13:34)
[2018-03-01 13:38] LABS: INR 0.95 (0.83-1.16); PROTIME(PATIENT) 12.9 SEC (12.0-15.0)
--- NOTE | 2018-03-01 14:16 | CPEKG ---
Heart Rate: 94 RR Interval: 638 P-R Interval: 188 QRSD Interval: 144 QT Interval: 396 QTC Interval: 496 P [place]: -10 QRS [place]: 109 T Wave [place]: -33 EKG Severity - ABNORMAL ECG - EKG Impression: SINUS RHYTHM EKG Impression: VENTRICULAR PREMATURE COMPLEX EKG Impression: RBBB AND LPFB Electronically Signed By: Paulina Mayfield 01-Mar-2018 18:38:47
[2018-03-01] MEDS ORDERED: ONDANSETRON 4 MG/2 ML VIAL IVP PRN (14:45)
[2018-03-01] MEDS ORDERED: ONDANSETRON DISINTEGRATING 4 MG TAB PO PRN (14:45)
[2018-03-01] MEDS ORDERED: ACETAMINOPHEN 325 MG TAB PO PRN (14:45)
--- NOTE | 2018-03-01 16:07 | GHP ---
[f rep st] HISTORY AND PHYSICAL DATE OF ADMISSION: 03/01/2018 CHIEF COMPLAINT: Severe sepsis, hypoxia. HISTORY OF PRESENT ILLNESS: An 87-year-old male with a history of dementia, ENRIKE on 2 L at night, presenting with shortness of breath and vomiting. He had a subramanian catheter in place that was pulled today at home. When removed, he had a large amount of gross hematuria. EMS was called and found him very short of breath and multiple episodes of vomiting. He denies fevers, chills, or sweats at home. No nausea or diarrhea. Denies a cough. Does report difficulty swallowing foods and liquids intermittently. He had a fall 3 days ago when he was unbalanced, fixing a sprinkler, scraped the front of his forehead. Did not have loss of consciousness. Denies chest pain, SOB. No back pain. REVIEW OF SYSTEMS: I completed a 10-point review of systems per patient and review of Samson as he is not the best historian, negative, except as noted in HPI. PAST MEDICAL HISTORY: 1. Dementia. 2. ENRIKE, chronic hypoxemic respiratory failure, on 2 L at night. 3. Hypertension. 4. Diverticulosis, 10/14/2016, EGD was negative for malignancy or H pylori. 5. History of an epidural abscess. 6. BPH. 7. Urinary frequency. PAST SURGICAL HISTORY: Detached retina, back surgery for epidural abscess. SOCIAL HISTORY: Lives in [place] with his . Denies alcohol or tobacco. FAMILY HISTORY: Noncontributory. ALLERGIES: No known drug allergies. HOME MEDICATIONS: Norvasc 2.5 mg daily, Detrol 2 mg daily, Flomax 0.4 mg daily , propranolol 40 mg daily, potassium 20 mEq p.o. q.h.s., Protonix 40 mg daily, lisinopril 40 mg daily, Lasix 40 mg daily, finasteride 5 mg daily, Tylenol as needed. PHYSICAL EXAM: VITAL SIGNS: Temperature 38.7. Initial blood pressure 213/104 , repeat 179/81, heart rates 108, now 91. Respiration was 40, now 20. It was 84% on room air, 97 on 5 currently. GENERAL: An elderly male lying in bed, in no acute distress, answering questions appropriately. HEENT: Mildly dry mucous membranes. Oropharynx clear. CV: Regular. No murmurs, gallops, or rubs. LUNGS: Diminished at bases, but no crackles or wheezing. ABDOMEN: Soft, nontender. No grimace with palpation. : Subramanian with yellow urine. No suprapubic or CVA tenderness. MUSCULOSKELETAL: Moving all 4 extremities. NEUROLOGIC: 2 through 12 intact. No facial droop. Normal sensation to touch. PSYCH: He is oriented to the hospital and self. Skin: small cut on right 3rd toe, no redness/warmth LABORATORY DATA: WBC 9, hemoglobin 15, hematocrit 49, platelets 309. Coags are within normal. Lactate is 2.6. Repeat is 2.8. Sodium 148, potassium 4.7, chloride 107, carbon dioxide 26, anion gap 15, creatinine 0.9. Glucose is 104. Total bilirubin is 1.1. EKG is personally reviewed by me, sinus tachycardia, PVCs, right bundle branch block, which is chronic. Chest x-ray is personally reviewed by me, patchy opacities, bilateral bases. ASSESSMENT AND PLAN: 1. Severe sepsis: tachycardiac, fever, RR >20. Possible PNA or pneumonitis with vomiting. UA pending with recent subramanian. Resp PCR negative. Was dosed IV Levaquin in ER. Chest x-ray shows bilateral opacities. treat with Ceftriaxone and azithromycin for community-acquired pneumonia, as well as possible UTI. If clinically declines, can broaden to cover for anaerobes for aspiration. h/o epidural abscess, no sxs or signs on exam. Blood cultures are pending. 2. Accelerated hypertension: likely due to stress, possible urinary retention. Symptoms improved once subramanian replaced and bladder irrigated. Will monitor closely. Resume his home medications in the morning; PRN hydralazine if needed. 3. Tachycardia: due to to fever, likely infection. Plan as stated above. 4. Acute on chronic hypoxic respiratory failure: PNA vs pneumonitis. IV abx. Legionella, Strep pneumo Ag pending. and blood cultures are pending. 5. Essential hypertension: Resume home medications tomorrow if blood pressure remains stable. 6. Benign prostatic hypertrophy: followed by Dr. Oconnor. Resume home medications. Subramanian is in place. 7. Dementia: recently diagnosed by his PCP, Dr. Lucero. SLUMS score was 13. PT /OT and speech evaluations. 8. Recent mechanical fall: abrasions on his forehead. Has a walker and cane at home but not always compliant. 9. History of epidural abscess: no signs/symptoms. 10. History of diverticulosis: No recent bleeding. 11. Lactic acidosis: due to acute illness, dehydration. Repeat after hydration. 12. Diet: Regular. 13. Deep vein thrombosis prophylaxis: Sequential compression devices. Disposition: warrants inpatient admission given severe sepsis, IV antibiotics, repeat lactate, PT/OT. /[id number]/MODL MTDD
--- NOTE | 2018-03-01 20:08 | PDMN ---
Medical Necessity Medical necessity: Pt meets IP criteria per MD; est los >2 mn for eval/tx of severe sepsis w/tachycardia, fever, RR >20, possible pneumonia or pneumonitis w/ vomiting, as well as possible UTI, accelerated HTN & acute on chronic respiratory failure; admit to Step-Down ICU for further workup/close monitoring , IV abx, med management & therapies; comorbid advanced age, dementia, recent mechanical fall, ENRIKE, HTN, epidural abscess & diverticulosis; per H&P & order 03/01/18
[2018-03-01] MEDS: PANTOPRAZOLE SODIUM 40 MG TAB PO SCH (21:52)
[2018-03-02] MEDS ORDERED: ceFAZolin 1 GM in NS 50 ML IV SCH (08:33)
[2018-03-02] MEDS: TAMSULOSIN HCL 0.4 MG CAP PO SCH (08:42)
[2018-03-02] MEDS: LISINOPRIL 40 MG TAB PO SCH (08:42)
[2018-03-02] MEDS: TOLTERODINE TARTRATE 2 MG EXT REL CAP PO SCH (08:42)
[2018-03-02] MEDS: FINASTERIDE 5 MG TAB PO SCH (08:42)
[2018-03-02] MEDS: PANTOPRAZOLE SODIUM 40 MG TAB PO SCH ×2 (08:42→20:11)
[2018-03-02] MEDS: FUROSEMIDE 40 MG TAB PO SCH (08:43)
[2018-03-02] MEDS ORDERED: AZITHROMYCIN 250 MG TAB PO SCH (09:00)
--- NOTE | 2018-03-02 10:18 | HOSPPROG ---
Hospitalist Progress Note Assessment/Plan: DIAGNOSES: # ACUTE SEPSIS, SEVERE * fever, bacteremia, tachycardia, tachypnea, metabolic acidosis # MSSA BACTEREMIA * no definite source but he has back pain and had epidural abscess in same lumbar area 2 yrs ago; does have a few minor abraisions * consider possible endocarditis * at present I DO NOT suspect pneumonia or UTI # SUSPECT TRAUMATIC SUBRAMANIAN REMOVAL AT HOME YEST * pt describes that he had subramanian placed recently by Dr Oconnor and had been instructed to remove it at home yesterday, states that w removal he had bleeding and pain, and followed by nausea * Will need Dr. Oconnor input # HTN, TACHYCARDIA * so far has not been getting his usual propranolol, this may be causative # NAUSEA, EMESIS, ? due to pain from subramanian removal * appears to have resolved at present # METABOLIC ACIDOSIS W HIGH LACTATE * due to sepsis, resolved with initial resuscitation # ACUTE ON CHRONIC HYPOXEMIC RESP FAILURE * uses nocturnal O2 at home * presents w SOB and worsened hypoxemia now, suspect due to infectious illness, pain, other issues * CXR by my reading shows mainly atelectasis, doubt pneumonia at present # GAIT INSTABILITY/DECONDITIONING/FALL RISK * suspect there is some chronic change worsened by his acute illness # DEMENTIA PLANS: * abx switched to Ancef for MSSA * MRI to asses for possible recurrent Lumbar spine infection * Echo to r/o endocarditis * resume his propranolol at this time, follow vitals * fall risk precautions, PT and OT assessments * DVT prophylaxis * I have asked Dr Issa Abarca to see her from ID * I will ask Dr. Oconnor to see him from Urology This patient was seen by me today on hospitals rounds as well as ICU multidisciplinary rounds I reviewed in detail with Dr. 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, my review: Sinus Exam: alert oriented skin warm dry color ok resps not labored lungs clear BSs heart regular abd soft nondistended nontender, bowel sounds present limbs warm, no edema iv site ok Laboratory data: Renal function stable, electrolytes good Procalcitonin quite elevated at 31 consistent with his sepsis and bacteremia I reviewed his chest x-ray images from yesterday in the ER, there is poor inspiration and bibasilar atelectasis, would be hard to rule out possibility of some infiltrate Objective: Vital Signs Temp Pulse Resp BP Pulse Ox 36.7 C 62 34 H 159/69 H 91 L 03/02/18 08:04 03/02/18 08:04 03/02/18 08:04 03/02/18 08:42 03/02/18 08:04 Laboratory Results 03/02/18 06:10 03/01/18 03/02/18 03/03/18 06:59 06:59 06:59 Intake Total 3250 Output Total 1550 Balance 1700 PT 12.9 SEC (12.0-15.0) 03/01/18 12:30 INR 0.95 (0.83-1.16) 03/01/18 12:30 ICD10 Worksheet Patient Problems: Problems Problem Status Onset Pneumonia Acute Severe sepsis Acute Constipation Acute Diverticulitis Acute Rectal bleed Acute
--- NOTE | 2018-03-02 10:23 | ECHO ---
[email or web address] [address] [address] Main: [phone] Fax: Transthoracic Echocardiogram Name: SHANITA GANDHI MR#: [id number] Study Date: 03/02/2018 Study Time: 09:07 AM Date of : 1930 Age: 87 year(s) Height: 157.5 cm (62 in.) Weight: 75.75 kg (167 lb.) BSA: 1.77 m2 Gender: Male Examination: Echo Indication: staph bacteremia Image Quality: Adequate Contrast: Requested by: Tre Bueno BP: / Heart Rate: Rhythm: Indication: staph bacteremia Procedure Staff Sole Rounder: Candice Christian RDCS Reading Physician: Get Branch MD Requesting Provider: Conclusions: Normal global systolic LV function. EF is 64 %. Mild mitral valve regurgitation is present. Mild aortic valve regurgitation is present. Mild tricuspid regurgitation is present. The pulmonary artery pressure is normal. Measurements: Chambers Valvular Assessment AV/MV Valvular Assessment TV/PV Normal Normal Normal Name Value Range Name Value Range Name Value Range Ao Theresa (2D): 3.5 cm (1.4 cm-2.6 AV Vmax: 1.20 m/s (1 m/s-1.7 PV Vmax: 0.79 m/s (0.6 m/s-0.9 cm) m/s) m/s) IVSd (2D): 1.4 cm (0.6 cm-1.1 AV maxP mmHg ( - ) PV PGmax: 2 mmHg ( - ) cm) AV meanP mmHg ( - ) LVDd (2D): 4.0 cm (4.2 cm-5.9 [place] (VTI): 2.0 cm ( - ) cm) MV E Vmax: 0.57 m/s ( - ) LVDs (2D): 2.8 cm (2.1 cm-4 MV A Vmax: 0.85 m/s ( - ) cm) MV E/A: 0.67 ( - ) LVPWd (2D): 1.3 cm (0.6 cm-1 cm) MV PHT: 0.079 s ( - ) LVOTd 1.9 cm 1.9 cm mm MVA (PHT): 2.8 s ( - ) LVEF (BP): 64 % (>=55 %) RVDd(2D): 3.0 cm (1.9 cm-3.8 cmmm) Continued Measurements: Chambers Valvular Assessment AV/MV Valvular Assessment TV/PV Name Value Name Value Name Value Patient: SHANITA GANDHI Study Date: 03/02/2018 Page 1 of 2 09:07 AM LADs: 4.8 cm MV DecTime: 243 m/s CVP (est.): 5 mmHg LADs Lon.2 cm MV E' Septal: 0.04 m/s LA Area: 27.5 cm2 MV E/E' Septal: 14.20 LA Volume: 85 ml MV E/E' Lateral: 13.20 LA Volume Index: 48.0 ml/m2 RA Area: 21.6 cm2 Additional Vessels Name Value Ao Ascendin.9 cm Inferior Vena Cava: 2.2 cm Findings: Left Ventricle: Normal size left ventricle. Normal global systolic LV function. EF is 64 %. No regional wall motion abnormality. Diastolic dysfunction is present. . Left ventricular hypertrophy. Right Ventricle: Normal size right ventricle. Normal RV function. Left Atrium: The left atrium is severely dilated. Right Atrium: The right atrium is normal in size. Mitral Valve: The mitral valve is normal in appearance and function. Mild mitral valve regurgitation is present. No mitral stenosis is present. Aortic Valve: The aortic valve is tri-leaflet. Aortic sclerosis is present. Mild aortic valve regurgitation is present. No aortic valve stenosis is present. Tricuspid Valve: The tricuspid valve is normal in appearance and function. Mild tricuspid regurgitation is present. The pulmonary artery pressure is normal. Pulmonic Valve: The pulmonic valve is normal in appearance and function. There is no pulmonic regurgitation seen. Aorta: The aorta is normal. Normal size aortic root measuring 3.5 cm. Normal size ascending aorta measuring 2.9 cm. IVC: The IVC is normal sized. Pericardium: No pericardial effusion. No pleural effusion. (No Signature Object) Patient: SHANITA GANDHI Study Date: 03/02/2018 Page 2 of 2 09:07 AM [id number]
[2018-03-02] MEDS: PROPRANOLOL HCL 20 MG TAB PO SCH ×2 (11:53→20:11)
--- NOTE | 2018-03-02 12:02 | ASMTCMCOM ---
CM Note CM Note Notes: Pt admitted with acute sepsis, severe. He has some dementia and is hard of hearing. He normally lives independently with his . He has a cane and walker , but doesn't always use it. In addition to the sepsis he recently took a fall and has scrapes on his face. OT recommends SNF rehab. PT eval has been ordered. CM to review results of eval and begin discussion with Pt re services necessary following D/C. D/C Plan: To be determined following PT recommendations. Date Signed: 03/02/2018 12:01 PM Electronically Signed By:Vianey Gilliam
[2018-03-02] MEDS ORDERED: GADOBUTROL 10 ML VIAL IVP ONE (13:37)
--- NOTE | 2018-03-02 21:39 | GCON ---
[f rep st] CONSULTATION INPATIENT INFECTIOUS DISEASE CONSULTATION REFERRING PHYSICIAN: Tre Bueno MD REFERRING PHYSICIAN: Tre Bueno MD REASON FOR REFERRAL: Staph aureus bacteremia. HISTORY OF PRESENT ILLNESS: The patient is an 87-year-old male who was admitted to [facility] through the emergency room on the afternoon of 03/01/2018. The patient presented complaining of shortness of breath and vomiting. history of dementia and obstructive sleep apnea. Alber javier had some mental status changes prior to admission that resulted in his pulling a Lemons catheter and resulted in a large amount of gross hematuria. EMS brought him to [facility]. On cj luation he was found to qualify for sepsis with tachycardia and fever to 38.7. The patient was treat ed with ceftriaxone and azithromycin and blood cultures were drawn. Blood cultures began growing sta phylococci the next day, and antibiotics were changed to cefazolin 1 gram every 8 hours. He did have a history last year of an admission with a paraspinous collection felt to be possibly related to dis kitis. Although this was sampled and aspirated, no pathogen grew at that point. He ended up being t reated with 8 weeks of empiric ertapenem. Presently, he is sitting up in his hospital room in the ch air. He is awaiting dinner. He denies any new complaint. He does note that he has back pain, altho ugh he cannot say that it is more than his usual underlying back pain. He denies any gastrointestina l or urinary symptoms. He denies any joint pain. He denies any new skin lesions. PAST MEDICAL HISTORY: 1. Dementia. 2. Obstructive sleep apnea. 3. Hypertension. 4. Diverticulosis. 5. History of an epidural abscess as described above. 6. Benign prostatic hypertrophy. 7. Urinary frequency. PAST SURGICAL HISTORY: 1. Status post back surgery for abscess drainage. 2. History of surgical reattachment of retina. ANTIBIOTICS: Cefazolin. ALLERGIES: No known drug allergies. SOCIAL HISTORY: The patient lives with his in [place]. No alcohol tobacco, or drug use noted. FAMILY HISTORY: Reviewed, but noncontributory. REVIEW OF SYSTEMS: Other than that detailed above in the history of present illness, comprehensive 1 0-system review is negative. PHYSICAL EXAMINATION: VITAL SIGNS: Temperature maximum is 38.7, temperature current is 36.7, heart rate is 57, respiratory rate is 18, blood pressure is 174/78. GENERAL: The patient is a well-formed , well-nourished elderly male in no acute distress. He is not toxic in appearance. He is alert and oriented x3. He is pleasant in demeanor. HEENT: Normocephalic for age. Atraumatic. No scleral ic terus. No oral lesion or drainage from the nares. Eyes, lids and conjunctivae are within normal rosario its. Pupils are equal and round bilaterally. NECK: Supple without meningismus. LUNGS: Clear to a uscultation with decreased breath sounds in the bases bilaterally. Good effort. HEART: Regular rat e and rhythm. No murmur, rub, or gallop noted. No significant peripheral edema. SKIN: Warm and dr y to the touch. The patient has scattered actinic keratoses and other minor dermatitic lesions. No abscesses or inflamed lesions noted. MUSCULOSKELETAL: No muscle belly tenderness is noted. No join t effusion or arthritis is seen. NEURO: Cranial nerves 2-12 seem to be intact. Peripher al sensation seems intact in extremities. LABORATORY DATA: Patient has a CBC dated 03/01/2018. Shows a white blood cell count of 9.51, hemogl obin of 15.9, hematocrit of 49.8, and a platelet count of 309. Differential is somewhat left-shifted with 83% segmented neutrophils and 13% band forms. Serum chemistries on 03/02/2018 show sodium of 1 45, potassium of 4.3, chloride of 113, bicarbonate of 22, BUN of 16, and creatinine of 0.8. Procalci tonin level drawn this morning is markedly elevated at 31.81. Urinalysis on 03/01/2018 shows 3+ bloo d, 1+ leukocyte esterase, 50 to 182 red cells with 15-25 white cells per high-power field. Urine Leg ionella antigen, as well as a urine strep pneumo antigen on 03/01/2018 are pending. MICROBIOLOGIC DATA: The patient has blood cultures dated 03/01/2018, which are growing gram-positive cocci in clusters identified by our multiplex PCR as methicillin-susceptible Staph aureus. Urine cu lture on 03/01/2018 is no growth at 24 hours. RADIOLOGIC DATA: The patient has a chest x-ray dated 03/01/2018, which shows mild patchy atelectasis or scarring in the lower lobes bilaterally. No focal infiltrate or effusion. The patient's echocar diogram on 03/02/2018 shows no vegetations on his cardiac valves. Lumbar spine MRI with and without contrast on 03/02/2018 did not show any evidence of diskitis or epidural abscess. ASSESSMENT: Methicillin-susceptible Staph aureus bacteremia with unclear etiology. The lumbar spine appears to be within normal limits for age. We my might wish to image the thoracic or cervical spin es at a later time if symptoms present, but at this point he has no localizing symptoms to guide. We will continue the cefazolin at present dose and recheck blood cultures tomorrow. The patient could have gotten primary bacteremia with MSSA secondary to the variety of minor skin lesions that he has. The trauma that he caused by removing his Lemons at home prior to transport explains the abnormalitie s in his urinalysis, although his presenting with fevers probably precludes this traumatic removal of the Lemons as being the cause of his bacteremia. PLAN: 1. Continue cefazolin at present dose. 2. Follow up blood cultures tomorrow. 3. Continue to follow laboratory values as well as clinical signs. /[id number]/MODL
[2018-03-03] MEDS: FINASTERIDE 5 MG TAB PO SCH (09:01)
[2018-03-03] MEDS: FUROSEMIDE 40 MG TAB PO SCH (09:01)
[2018-03-03] MEDS: TOLTERODINE TARTRATE 2 MG EXT REL CAP PO SCH (09:01)
[2018-03-03] MEDS: TAMSULOSIN HCL 0.4 MG CAP PO SCH (09:02)
[2018-03-03] MEDS: PANTOPRAZOLE SODIUM 40 MG TAB PO SCH ×2 (09:02→20:07)
[2018-03-03] MEDS: LISINOPRIL 40 MG TAB PO SCH (09:02)
[2018-03-03] MEDS: PROPRANOLOL HCL 20 MG TAB PO SCH ×2 (10:07→20:07)
--- NOTE | 2018-03-03 11:16 | PCMIDPN ---
Assessment/Plan: Assessment: staph aureus bacteremia. Appears to be MSSA. No clear etiology by imaging of the lumbar spine. No evidence of diskitis or epidural abscess. Will continue the cefazolin at current dose and recheck blood cultures. Patient has no further worsening or localizing clinical symptoms to indicate investigation with imaging at this point. If he improves and we are able to clear the blood stream I suspect we are going to need a 4 week course of cefazolin. Plan: 1. continue IV cefazolin. 2. Follow up on culture data. 3. suspect a duration of 4 weeks for empiric treatment of primary bacteremia if no source is found. 03/03/18 13:58 03/03/18 13:59 Subjective: Patient is resting in his hospital bed. He has no new complaints. He continues to deny any focal pain other than chronic lumbar back pain which is no worse than baseline. Denies any fevers or chills. No rash. Objective: Cefazolin # 1 Vital Signs Temp Pulse Resp BP Pulse Ox 36.8 C 52 L 26 H 157/71 H 90 L 03/03/18 11:11 03/03/18 11:11 03/03/18 11:11 03/03/18 11:11 03/03/18 11:11 Laboratory Results 03/02/18 06:10 03/02/18 03/03/18 03/04/18 05:59 05:59 05:59 Intake Total 3250 1268 400 Output Total 550 3100 Balance 2700 -1832 400 - Physical Exam General Appearance: WD/WN, alert, no apparent distress, non-toxic Respiratory: lungs clear, normal breath sounds, No respiratory distress Cardiac/Chest: regular rate, rhythm, No tachycardia, No systolic murmur Extremities: non-tender, normal inspection Skin: normal color, warm/dry, No rash Neuro/Psych: alert, normal mood/affect, oriented x 3 ICD10 Worksheet Patient Problems: Problems Problem Status Onset Pneumonia Acute Severe sepsis Acute Constipation Acute Diverticulitis Acute Rectal bleed Acute
--- NOTE | 2018-03-03 12:08 | HOSPPROG ---
Hospitalist Progress Note Assessment/Plan: DIAGNOSES: # ACUTE SEPSIS, SEVERE * fever, bacteremia, tachycardia, tachypnea, metabolic acidosis at presentation at this time have all resolved with antibiotic therapy # MSSA BACTEREMIA * no definite source; does have a few minor abraisions but no cellulitis * No evidence of endocarditis clinically or by echo at this time, and nothing seen an MRI of spine (prior history of epidural abscess in the lumbar area) * at present I DO NOT suspect pneumonia or UTI # SUSPECT TRAUMATIC SUBRAMANIAN REMOVAL AT HOME YEST * pt describes that he had subramanian placed recently by Dr Oconnor and had been instructed to remove it at home yesterday, states that w removal he had bleeding and pain, and followed by nausea * Will need Dr. Oconnor input # HTN * So far poorly controlled here despite his usual amlodipine, lisinopril, and propranolol * Numbers fairly severe, may need to add some diuretic or other medicine will follow through today as current blood pressure okay # NAUSEA, EMESIS, ? due to pain from subramanian removal * appears to have resolved at present # METABOLIC ACIDOSIS W HIGH LACTATE * due to sepsis, resolved with initial resuscitation # ACUTE ON CHRONIC HYPOXEMIC RESP FAILURE * uses nocturnal O2 at home * presents w SOB and worsened hypoxemia now, suspect due to infectious illness, pain, other issues * CXR by my reading shows mainly atelectasis, doubt pneumonia at present # GAIT INSTABILITY/DECONDITIONING/FALL RISK * suspect there is some chronic change worsened by his acute illness # DEMENTIA PLANS: * abx switched to Ancef for MSSA * Repeat surveillance cultures to check for clearing of bacteremia * Consider addition of chlorthalidone if significant hypertension persists * fall risk precautions, PT and OT assessments * DVT prophylaxis * I will ask Dr. Oconnor to see him from Urology This patient was seen by me today on hospitals rounds as well as ICU multidisciplinary rounds SUBJECTIVE: Overall feels reasonably good No chills or sweats Still some back pain unchanged from yesterday, no radicular symptoms No other new symptoms; still no cough or other respiratory symptoms OBJECTIVE Vitals reviewed: Quite hypertensive overnight though a bit better this morning , heart rates now in the bradycardic range over night and this morning in 50s occasionally to 48, no recurrent fever so far here in the past 24 hr Social Work Manager, my review: Sinus Exam: alert oriented looks relaxed skin warm dry color ok resps not labored lungs clear BSs heart regular abd soft nondistended nontender, bowel sounds present limbs warm, no edema Moves some difficulty due to back pain but is able with the sit up in bed and stand up iv site ok Laboratory data: Legionella and strep pneumo serologies pending MRI lumbar spine with and without, March 02 the, I reviewed the images: No evidence of infectious process in her around the lumbar spine at this time Echocardiogram transthoracic March 02 no evidence of vegetation Objective: Vital Signs Temp Pulse Resp BP Pulse Ox 36.8 C 52 L 26 H 157/71 H 90 L 03/03/18 11:11 03/03/18 11:11 03/03/18 11:11 03/03/18 11:11 03/03/18 11:11 Laboratory Results 03/02/18 06:10 03/02/18 03/03/18 03/04/18 06:59 06:59 06:59 Intake Total 3250 1268 400 Output Total 1550 2100 Balance 1700 -832 400 PT 12.9 SEC (12.0-15.0) 03/01/18 12:30 INR 0.95 (0.83-1.16) 03/01/18 12:30 - Time Spent With Patient Time Spent with Patient: greater than 35 minutes Time Spent with Patient: Greater than 35 minutes spent on this patients care, greater than 50% of time spent counseling, educating, and coordinating care regarding the above mentioned plan. ICD10 Worksheet Patient Problems: Problems Problem Status Onset Pneumonia Acute Severe sepsis Acute Constipation Acute Diverticulitis Acute Rectal bleed Acute
[2018-03-03] MEDS: ENOXAPARIN 40 MG/0.4 ML SYR SC SCH (12:24)
[2018-03-04] MEDS: TOLTERODINE TARTRATE 2 MG EXT REL CAP PO SCH (07:39)
[2018-03-04] MEDS: LISINOPRIL 40 MG TAB PO SCH (07:39)
[2018-03-04] MEDS: PANTOPRAZOLE SODIUM 40 MG TAB PO SCH ×2 (07:40→20:00)
[2018-03-04] MEDS: FINASTERIDE 5 MG TAB PO SCH (07:40)
[2018-03-04] MEDS: TAMSULOSIN HCL 0.4 MG CAP PO SCH (07:40)
[2018-03-04] MEDS: FUROSEMIDE 40 MG TAB PO SCH (07:40)
[2018-03-04] MEDS: ENOXAPARIN 40 MG/0.4 ML SYR SC SCH (07:40)
[2018-03-04] MEDS: PROPRANOLOL HCL 20 MG TAB PO SCH ×2 (07:43→20:00)
--- NOTE | 2018-03-04 11:25 | PCMIDPN ---
Assessment/Plan: Assessment: MSSA bacteremia. No clear etiology by imaging of the lumbar spine. No evidence of diskitis or epidural abscess. Will continue the cefazolin at current dose and follow blood cultures drawn yesterday. Patient has no further worsening or localizing clinical symptoms to indicate investigation with imaging at this point. If he improves and we are able to clear the blood stream I suspect we are going to need a 4 week course of cefazolin. Plan: 1. continue IV cefazolin. 2. Follow up on culture data. 3. suspect a duration of 4 weeks for empiric treatment of primary bacteremia if no source is found. Subjective: Patient is sitting up on the side of his bed. He is in good spirits and seems to have reasonable energy. He is working with physical therapy in about to take an assisted walk around the room and the alvarez. Denies fevers or chills. Objective: Cefazolin # 2 Vital Signs Temp Pulse Resp BP Pulse Ox 37.0 C 56 L 24 H 165/72 H 97 03/04/18 07:24 03/04/18 07:43 03/04/18 09:15 03/04/18 09:15 03/04/18 07:24 Microbiology 03/01/18 16:20 Urine Culture - Final Urine,Clean Catch Staphylococcus Aureus Laboratory Results 03/02/18 06:10 03/03/18 03/04/18 03/05/18 05:59 05:59 05:59 Intake Total 1268 550 Output Total 3100 1600 Balance -1832 -1050 - Physical Exam General Appearance: WD/WN, alert, no apparent distress, non-toxic Respiratory: lungs clear, normal breath sounds, No respiratory distress Cardiac/Chest: regular rate, rhythm, No tachycardia Extremities: non-tender, normal inspection Skin: normal color, warm/dry, No rash Neuro/Psych: alert, normal mood/affect, oriented x 3 ICD10 Worksheet Patient Problems: Problems Problem Status Onset Pneumonia Acute Severe sepsis Acute Constipation Acute Diverticulitis Acute Rectal bleed Acute
--- NOTE | 2018-03-04 14:00 | ASMTCMCOM ---
CM Note CM Note Notes: Spoke with pt's Iqra regarding therapy's recommendation for SNF. Pt gave permission to speak with her. He is resistant to going to SNF. His is very concerned about him - she said he just "sits and watches TV" all day at home and has fallen 5 times outside recently. She agrees he needs SNF to improve his stamina and help him to get stronger. He has been to [facility] in the past and his said it's the easiest facility for her to get to as she doesn't drive. Referral sent via Generate. PASRR done. She will discuss with him and provide encouragement. CM will continue to follow. Date Signed: 03/04/2018 02:00 PM Electronically Signed By:GORDON Mcdonald
--- NOTE | 2018-03-04 17:07 | HOSPPROG ---
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 Oconnor input; he should be available for consultation tomorrow March 05 # HTN * So far poorly controlled here despite his usual amlodipine, lisinopril, and propranolol * No room for increase of lisinopril or beta-davis given his age and his bradycardia, doubt increasing amlodipine would be helpful * Will add chlorthalidone to see how this helps # NAUSEA, EMESIS, ? due to pain from subramanian removal at home * Symptoms resolved at time of admission have not recurred since # METABOLIC ACIDOSIS W HIGH LACTATE * due to sepsis, resolved with initial resuscitation # ACUTE ON CHRONIC HYPOXEMIC RESP FAILURE * uses O2 at home * SOB and worsened hypoxemia on presentation, suspect due to infectious illness , pain, other issues * CXR by my reading shows mainly atelectasis, doubt pneumonia at present * Seems probably very close to baseline at present # GAIT INSTABILITY/DECONDITIONING/FALL RISK * suspect there is some chronic change worsened by his acute illness # DEMENTIA PLANS: * Likely plan on so 4 weeks of Ancef given uncertain etiology of infection, and history of spine infection with hardware present there now * Repeat surveillance cultures done March 03 to check for clearing of bacteremia still pending * addition of chlorthalidone at this time for persisting hypertension * fall risk precautions, PT and OT assessments * DVT prophylaxis * ask Dr. Oconnor to see him from Urology upon his return this week; keep Subramanian in until then SUBJECTIVE: Overall feels reasonably good No chills or sweats Less back pain today No other new symptoms; still no cough or other respiratory symptoms OBJECTIVE Vitals reviewed: Blood pressure is better than the day before but still intermittently fairly high despite multiple meds; still some tachypnea and using oxygen but he states his breathing feels about the same as usual for him, remains mildly bradycardic likely due to beta-davis but may need to look for other causes Fitter'S Assistant, my review: Sinus Exam: alert oriented looks relaxed skin warm dry color ok resps not labored lungs diminished but clear BSs heart regular abd soft nondistended nontender, bowel sounds present limbs warm, no edema Moving more easily today with less apparent back pain iv site ok Laboratory data: Legionella and strep pneumo serologies all negative MRI lumbar spine with and without, March 02, I reviewed the images: No evidence of infectious process in her around the lumbar spine at this time Echocardiogram transthoracic March 02 no evidence of vegetation Objective: Vital Signs Temp Pulse Resp BP Pulse Ox 36.8 C 45 L 23 H 135/65 H 93 03/04/18 15:33 03/04/18 15:33 03/04/18 15:33 03/04/18 15:33 03/04/18 15:33 Microbiology 03/01/18 16:20 Urine Culture - Final Urine,Clean Catch Staphylococcus Aureus Laboratory Results 03/02/18 06:10 03/03/18 03/04/18 03/05/18 06:59 06:59 06:59 Intake Total 1268 550 Output Total 2100 1600 1400 Balance -832 -1050 -1400 PT 12.9 SEC (12.0-15.0) 03/01/18 12:30 INR 0.95 (0.83-1.16) 03/01/18 12:30 ICD10 Worksheet Patient Problems: Problems Problem Status Onset Pneumonia Acute Severe sepsis Acute Constipation Acute Diverticulitis Acute Rectal bleed Acute
[2018-03-04] MEDS: CHLORTHALIDONE 25 MG TAB PO SCH (18:03)
[2018-03-05] MEDS: TOLTERODINE TARTRATE 2 MG EXT REL CAP PO SCH (08:15)
[2018-03-05] MEDS: PROPRANOLOL HCL 20 MG TAB PO SCH (08:15)
[2018-03-05] MEDS: CHLORTHALIDONE 25 MG TAB PO SCH (08:16)
[2018-03-05] MEDS: TAMSULOSIN HCL 0.4 MG CAP PO SCH (08:16)
[2018-03-05] MEDS: FINASTERIDE 5 MG TAB PO SCH (08:16)
[2018-03-05] MEDS: PANTOPRAZOLE SODIUM 40 MG TAB PO SCH ×2 (08:16→21:51)
[2018-03-05] MEDS: FUROSEMIDE 40 MG TAB PO SCH (08:16)
[2018-03-05] MEDS: LISINOPRIL 40 MG TAB PO SCH (08:16)
[2018-03-05] MEDS: ENOXAPARIN 40 MG/0.4 ML SYR SC SCH (08:17)
[2018-03-05] MEDS ORDERED: PROPRANOLOL HCL 20 MG TAB PO SCH (09:29)
--- NOTE | 2018-03-05 09:32 | HOSPPROG ---
Hospitalist Progress Note Assessment/Plan: #MSSA bacteremia: unclear source. Negative TTE. h/o epidural abscess; MRI negative -4 wks IV abx #Bradycardia: asymptomatic. Hold BB #Deconditioning: PT/OT. Will need SNF at [place] #Dementia #Traumatic subramanian injury: at home. Will need outpatient FU with Dr. Oconnor #Uncontrolled HTN: stop BB with bradycardia. Lisinopril 40mg, Chlorthalidone, dose additional Norvasc today and increase to 10mg tomorrow #Acute on chronic hypoxemic resp failure: usually oxygen at night. Due to acute illness #Severe sepsis: resolved #Lactic acidosis: from acute illness. Resolved with IVFs #DVT ppx: SCDs #Disp: cont inpatient admission for BP control, IV abx. will need SNF at [place] Subjective: no CP, SOB or lightheadedness Objective: Vital Signs Temp Pulse Resp BP Pulse Ox 36.4 C 50 L 16 184/84 H 96 03/05/18 07:58 03/05/18 08:15 03/05/18 07:58 03/05/18 08:16 03/05/18 07:58 Microbiology 03/01/18 16:20 Urine Culture - Final Urine,Clean Catch Staphylococcus Aureus Laboratory Results 03/02/18 06:10 03/04/18 03/05/18 03/06/18 05:59 05:59 05:59 Intake Total 550 650 Output Total 1600 2400 Balance -1050 -1750 PT 12.9 SEC (12.0-15.0) 03/01/18 12:30 INR 0.95 (0.83-1.16) 03/01/18 12:30 - Physical Exam Constitutional: no apparent distress Eyes: PERRL Ears, Nose, Mouth, Throat: moist mucous membranes Cardiovascular: bradycardia Respiratory: no respiratory distress Gastrointestinal: normoactive bowel sounds Genitourinary: no bladder fullness Skin: warm, other (few abrasions on forehead) Musculoskeletal: other (walking the unit with his walker, slow gait) Neurologic: CN II-XII Intact (alert to place, month, president, not the year), other Psychiatric: interacting appropriately ICD10 Worksheet Patient Problems: Problems Problem Status Onset Pneumonia Acute Severe sepsis Acute Constipation Acute Diverticulitis Acute Rectal bleed Acute
[2018-03-05] MEDS ORDERED: amLODIPine BESYLATE 5 MG TAB PO ONE (11:33)
--- NOTE | 2018-03-05 13:50 | PCMIDPN ---
Assessment/Plan: Assessment/Plan: * MSSA bacteremia of unidentifed source: Urinary etiology of consideration with indwelling [place] which was recently traumatically removed and urine culture also showing greater than 100,000 MSSA. Clinically improved with antibiotic therapy. Echocardiogram does not show overt evidence of endocarditis and lumbar spine MRI without evidence of diskitis or osteomyelitis. Repeat blood cultures from 03/03/2018 are no growth to date. Will plan PICC line placement in a.m. for ongoing IV antibiotic therapy with anticipated duration of cefazolin of 4 weeks. Plan weekly CBC and CMP while on antibiotic therapy. 03/05/18 13:46 03/05/18 13:49 Subjective: Presentation and clinical course reviewed. Patient without specific complaints other than he notes some mild low back pain. Objective: Vital Signs Temp Pulse Resp BP Pulse Ox 36.4 C 50 L 12 134/66 H 95 03/05/18 11:51 03/05/18 11:51 03/05/18 11:51 03/05/18 12:35 03/05/18 11:51 Laboratory Results 03/02/18 06:10 03/04/18 03/05/18 03/06/18 05:59 05:59 05:59 Intake Total 550 650 Output Total 1600 2400 Balance -1050 -1750 Cefazolin # 3 Blood cultures 03/03/2018 no growth Lumbar spine MRI without evidence of diskitis or osteomyelitis TTE with mild AI, TR, and MR - Physical Exam General Appearance: alert, no apparent distress EENT: No thrush, No conjunctival petechiae Respiratory: lungs clear, No respiratory distress Cardiac/Chest: regular rate, rhythm, No systolic murmur Extremities: No inflammation Abdomen: non-tender, No distended Back: No spine tenderness Skin: No embolic lesions ICD10 Worksheet Patient Problems: Problems Problem Status Onset Pneumonia Acute Severe sepsis Acute Constipation Acute Diverticulitis Acute Rectal bleed Acute
[2018-03-05] MEDS ORDERED: BISACODYL 10 MG SUPP PR PRN (14:59)
[2018-03-05] MEDS ORDERED: MAGNESIUM HYDROXIDE 30 ML UDCUP PO PRN (14:59)
[2018-03-05] MEDS ORDERED: LACTULOSE 20 GM/30 ML UDCUP PO PRN (14:59)
[2018-03-05] MEDS ORDERED: POLYETHYLENE GLYCOL 3350 17 GM PKT PO PRN (14:59)
--- NOTE | 2018-03-05 15:22 | ASMTCMCOM ---
CM Note CM Note Notes: Pt now reluctantly agreeing to SNF. Pt will require 4 weeks IV antibiotics. CM to follow. D/c plan of care: [facility] when medically stable. Date Signed: 03/05/2018 03:22 PM Electronically Signed By:GORDON Huang
[2018-03-05] MEDS: SENNOSIDES/DOCUSATE SODIUM TAB PO SCH (21:51)
[2018-03-06] MEDS ORDERED: CEFAZOLIN 2 GM/DEXTROSE/100 ML BAG IV ONE ×2 (15:10→21:19)
[2018-03-06] MEDS: PANTOPRAZOLE SODIUM 40 MG TAB PO SCH (21:25)
[2018-03-06] MEDS: SENNOSIDES/DOCUSATE SODIUM TAB PO SCH (21:25)
[2018-03-06] MEDS: ceFAZolin 2 GM/DEXTROSE 100 ML IV SCH (21:25)
[2018-03-06] MEDS ORDERED: ALTEPLASE 2 MG VIAL IVP PRN (21:28)
--- NOTE | 2018-03-06 21:36 | PCMIDPN ---
Assessment/Plan: MSSA bacteremia of unidentified source: Urinary etiology of consideration with urine culture also showing greater than 100,000 MSSA. Clinically improved with antibiotic therapy. Echocardiogram does not show overt evidence of endocarditis and lumbar spine MRI without evidence of diskitis or osteomyelitis. Repeat blood cultures from 03/03/2018 are no growth to date. --increase to high dose cefazolin 2gm IV 8 --okay to place PICC Line --plan 4 weeks of IV antibiotics Micro 03/03/18 blood cx (2) NGTD 03/01/18 blood and Ucx MSSA Meds Cefazolin 1gm IV q8h S: No new c/o Labs: Cr 0.8 Exam Gen: elderly male NAD, [place] o/p clear CV: RRR no murmur Chest: clear B, but shallow inspiratory effort Skin: no peripheral stigmata of endocarditis Objective: Vital Signs Temp Pulse Resp BP Pulse Ox 37.0 C 63 16 152/81 H 93 03/05/18 23:13 03/05/18 23:13 03/05/18 23:13 03/05/18 23:13 03/05/18 23:13 Laboratory Results 03/02/18 06:10 03/05/18 03/06/18 03/07/18 05:59 05:59 05:59 Intake Total 650 Output Total 1198 771 Balance -1750 -675 - Time Spent With Patient Time Spent with Patient: greater than 25 minutes Time Spent with Patient: Greater than 25 minutes spent on this patients care, greater than 50% of time spent counseling, educating, and coordinating care regarding the above mentioned plan. ICD10 Worksheet Patient Problems: Problems Problem Status Onset Pneumonia Acute Severe sepsis Acute Constipation Acute Diverticulitis Acute Rectal bleed Acute
[2018-03-07] MEDS: ceFAZolin 2 GM/DEXTROSE 100 ML IV SCH ×4 (05:49→21:42)
[2018-03-07] MEDS: CHLORTHALIDONE 25 MG TAB PO SCH ×2 (07:26→09:30)
[2018-03-07] MEDS: ENOXAPARIN 40 MG/0.4 ML SYR SC SCH ×2 (07:26→09:28)
[2018-03-07] MEDS: amLODIPine BESYLATE 5 MG TAB PO SCH ×2 (07:26→09:27)
[2018-03-07] MEDS: FINASTERIDE 5 MG TAB PO SCH ×2 (07:27→09:26)
[2018-03-07] MEDS: SENNOSIDES/DOCUSATE SODIUM TAB PO SCH ×3 (07:27→21:40)
[2018-03-07] MEDS: LISINOPRIL 40 MG TAB PO SCH ×2 (07:27→09:38)
[2018-03-07] MEDS: PANTOPRAZOLE SODIUM 40 MG TAB PO SCH ×3 (07:27→21:40)
[2018-03-07] MEDS: TAMSULOSIN HCL 0.4 MG CAP PO SCH ×2 (07:27→09:20)
[2018-03-07] MEDS: FUROSEMIDE 40 MG TAB PO SCH ×2 (07:27→09:26)
[2018-03-07] MEDS: TOLTERODINE TARTRATE 2 MG EXT REL CAP PO SCH ×2 (07:27→09:20)
[2018-03-07] MEDS ORDERED: PROTOCOL POTASSIUM 1 DOSE MISC PRN (10:07)
--- NOTE | 2018-03-07 10:33 | PCMIDPN ---
Assessment/Plan: MSSA bacteremia possible urinary etiology of consideration with urine culture also showing greater than 100,000 MSSA. Clinically improved with antibiotic therapy. Echocardiogram does not show overt evidence of endocarditis and lumbar spine MRI without evidence of diskitis or osteomyelitis. Repeat blood cultures from 03/03/2018 are no growth to date. --cefazolin 2gm IV 8h, plan 4 weeks of IV antibiotics due to unclear source, 03/31 stop date --dc to SNF okay w ID Micro 03/03/18 blood cx (2) NGTD 03/01/18 blood and Ucx MSSA Meds Cefazolin 2gm IV q8h Subjective: no specific c/o today Objective: Vital Signs Temp Pulse Resp BP Pulse Ox 36.9 C 71 16 156/77 H 94 03/07/18 08:00 03/07/18 08:00 03/07/18 08:00 03/07/18 09:38 03/07/18 08:00 Laboratory Results 03/07/18 04:26 03/06/18 03/07/18 03/08/18 05:59 05:59 05:59 Intake Total 250 Output Total 675 600 Balance -675 -350 Exam Gen: elderly male NAD, [place] o/p clear CV: RRR no murmur Chest: clear B, but shallow inspiratory effort Skin: no peripheral stigmata of endocarditis - Physical Exam General Appearance: alert, no apparent distress Respiratory: No accessory muscle use, No crackles Cardiac/Chest: regular rate, rhythm, No systolic murmur Abdomen: non-tender, soft Skin: pallor, No rash Neuro/Psych: alert - Line/s RUE PICC Lines: No drainage, No erythema - Time Spent With Patient Time Spent with Patient: greater than 25 minutes Time Spent with Patient: Greater than 25 minutes spent on this patients care, greater than 50% of time spent counseling, educating, and coordinating care regarding the above mentioned plan. ICD10 Worksheet Patient Problems: Problems Problem Status Onset Pneumonia Acute Severe sepsis Acute Constipation Acute Diverticulitis Acute Rectal bleed Acute
--- NOTE | 2018-03-07 10:51 | PDIAF ---
- Diagnosis Diagnosis: MSSA bacteremia Code Status: Full Code - Medication Management Discharge Medications: Medications to Continue on Transfer Finasteride [Proscar 5 MG (*)] 5 mg PO DAILY 10/10/16 [Last Taken 10/09/16] Furosemide [Lasix 40 MG (*)] 40 mg PO DAILY 10/10/16 [Last Taken 10/09/16] Lisinopril [Zestril 40 mg (*)] 40 mg PO DAILY 10/10/16 [Last Taken 10/09/16] Potassium Cl [Klor-Con 20 meq (*)] 20 meq PO HS 10/10/16 [Last Taken 10/09/16] Propranolol HCl [Inderal 40mg (*)] 20 mg PO BID 10/10/16 [Last Taken 10/09/16] Tamsulosin HCl [Flomax 0.4 MG (*)] 0.4 mg PO DAILY 10/10/16 [Last Taken 10/09/16 ] Tolterodine Tartrate [Detrol LA 2MG (*)] 2 mg PO DAILY 10/10/16 [Last Taken ] amLODIPine BESYLATE [Norvasc 2.5 mg (*)] 2.5 mg PO DAILY 10/10/16 [Last Taken ] Pantoprazole Sodium [Protonix 40mg (*)] 40 mg PO BID 03/01/18 [Last Taken Unknown] [employer] Antibiotics: Cefazolin 2 g IV Q 8 [facility] Antibiotic Stop Date: 03/31/18 Discharge Medications: Refer to the Discharge Home Medication list for PRN reason. PICC Care - Routine: Yes - Orders Isolation Type: None - Labs/Radiology CBC w/diff Date: 03/12/18 (Weekly, Monday) CMP Date: 03/12/18 (Weekly, Monday) Call or Fax Lab and Imaging Results to: Ezequiel Buck MD [facility] at fax [phone] - Follow Up Care Current Providers and Referrals: Patient,NotPresent [Unknown] - As per Instructions Ezequiel Buck MD [Medical Doctor] - follow up in 1 week
[2018-03-07] MEDS ORDERED: POTASSIUM CL 10 MEQ TAB PO ONE ×2 (11:25→21:32)
--- NOTE | 2018-03-07 11:45 | HOSPPROG ---
Hospitalist Progress Note Assessment/Plan: Patient was admitted on March 01 with complaints of shortness of breath and vomiting. It was noted he had sepsis on admission. Today is my 1st encounter with the patient. Chart reviewed. MSSA bacteremia: unclear source. Negative TTE. h/o epidural abscess; MRI negative -4 wks IV abx (Cefazolin) -PICC in today #Bradycardia: asymptomatic. Hold BB #Deconditioning: PT/OT. Will need SNF at [place] #Dementia #Traumatic subramanian injury: at home. Will need outpatient FU with Dr. Oconnor -leave marilynn in at dc #Uncontrolled HTN: stop BB with bradycardia. Lisinopril 40mg, Chlorthalidone, changed home dose of Norvasc from 5 mg daily to 10 mg daily #Acute on chronic hypoxemic resp failure: usually oxygen at night. Due to acute illness #Severe sepsis: resolved #Lactic acidosis: from acute illness. Resolved with IVFs #DVT ppx: SCDs #plan: dc to rehab Subjective: Lan is tired but has no complaints. Objective: Vital Signs Temp Pulse Resp BP Pulse Ox 36.9 C 71 16 156/77 H 94 03/07/18 08:00 03/07/18 08:00 03/07/18 08:00 03/07/18 09:38 03/07/18 08:00 Laboratory Results 03/07/18 04:26 03/06/18 03/07/18 03/08/18 05:59 05:59 05:59 Intake Total 250 Output Total 675 600 Balance -675 -350 PT 12.9 SEC (12.0-15.0) 03/01/18 12:30 INR 0.95 (0.83-1.16) 03/01/18 12:30 - Physical Exam Constitutional: appears nourished, not in pain, chronically ill appearing Eyes: PERRL Ears, Nose, Mouth, Throat: hearing normal Cardiovascular: regular rate and rhythym Respiratory: no respiratory distress, reduced air movement (right base) Gastrointestinal: normoactive bowel sounds Genitourinary: subramanian in urethra Skin: warm Musculoskeletal: generalized weakness Neurologic: AAOx3 Psychiatric: interacting appropriately ICD10 Worksheet Patient Problems: Problems Problem Status Onset Pneumonia Acute Severe sepsis Acute Constipation Acute Diverticulitis Acute Rectal bleed Acute
[2018-03-07] MEDS ORDERED: amLODIPine BESYLATE 5 MG TAB PO SCH (11:47)
--- NOTE | 2018-03-07 14:29 | PDIAF ---
- Diagnosis Diagnosis: MSSA bacteremia Code Status: Full Code - Medication Management Discharge Medications: Medications to Continue on Transfer Finasteride [Proscar 5 MG (*)] 5 mg PO DAILY 10/10/16 [Last Taken 10/09/16] Furosemide [Lasix 40 MG (*)] 40 mg PO DAILY 10/10/16 [Last Taken 10/09/16] Lisinopril [Zestril 40 mg (*)] 40 mg PO DAILY 10/10/16 [Last Taken 10/09/16] Potassium Cl [Klor-Con 20 meq (*)] 20 meq PO HS 10/10/16 [Last Taken 10/09/16] Tamsulosin HCl [Flomax 0.4 MG (*)] 0.4 mg PO DAILY 10/10/16 [Last Taken 10/09/16 ] Tolterodine Tartrate [Detrol LA 2MG (*)] 2 mg PO DAILY 10/10/16 [Last Taken ] Pantoprazole Sodium [Protonix 40mg (*)] 40 mg PO BID 03/01/18 [Last Taken Unknown] Chlorthalidone [Chlorthalidone 25 mg (*)] 25 mg PO DAILY tab 03/07/18 [Last Taken Unknown] Polyethylene Glycol 3350 [Miralax 17 gm (*)] 17 gm PO DAILY PRN pkt 03/07/18 [ Last Taken Unknown] Sennosides/Docusate Sodium [Senokot-S] 1 - 2 tab PO BID tab 03/07/18 [Last Taken Unknown] amLODIPine BESYLATE [Norvasc 2.5 mg (*)] 5 mg PO DAILY #0 03/07/18 [Last Taken 10/09/16] Snf Antibiotics: Cefazolin 2 g IV Q 8 Snf Antibiotic Stop Date: 03/31/18 Discharge Medications: Refer to the Discharge Home Medication list for PRN reason. PICC Care - Routine: Yes - Orders Services needed: Physical Therapy, Occupational Therapy Isolation Type: None Diet Recommendation: no restrictions on diet Diet Texture: Regular Texture Diet Additional Instructions: follow up w Dr Oconnor for urinary retention, will need to leave subramanian in until you see him, make an appt to see in the next [address] Rodriguez patient needs strengthening and endurance exercises propranolol was stopped due to bradycardia Norvasc dose was increased to 5 mg from 2.5 mg chlorthalidone is a new med for your blood pressure - Labs/Radiology CBC w/diff Date: 03/12/18 (Weekly, Monday) CMP Date: 03/12/18 (Weekly, Monday) Call or Fax Lab and Imaging Results to: Ezequiel Buck MD [facility] at fax [phone] - Follow Up Care Current Providers and Referrals: Ezequiel Buck MD [Medical Doctor] - follow up in 1 week Patient,NotPresent [Unknown] - As per Instructions Nabeel Oconnor MD [Medical Doctor] -
--- NOTE | 2018-03-07 15:05 | CPEKG ---
Heart Rate: 57 RR Interval: 1053 P-R Interval: 136 QRSD Interval: 150 QT Interval: 504 QTC Interval: 491 P [place]: 268 QRS [place]: 102 T Wave [place]: -42 EKG Severity - ABNORMAL ECG - EKG Impression: SINUS OR ECTOPIC ATRIAL RHYTHM EKG Impression: RIGHT BUNDLE BRANCH BLOCK Electronically Signed By: Ifeanyi Braxton 07-Mar-2018 20:23:38
--- NOTE | 2018-03-07 15:41 | ASMTCMCOM ---
CM Note CM Note Notes: Pt received picc today and had a bowel movement. Pt was going to d/c to [facility] and then had stat team called. Pt to transfer to . Date Signed: 03/07/2018 03:40 PM Electronically Signed By:GORDON Huang
--- NOTE | 2018-03-07 16:44 | CPEKG ---
Heart Rate: 62 RR Interval: 968 P-R Interval: 180 QRSD Interval: 146 QT Interval: 472 QTC Interval: 480 P [place]: 11 QRS [place]: 104 T Wave [place]: -39 EKG Severity - ABNORMAL ECG - EKG Impression: SINUS RHYTHM EKG Impression: RBBB AND LPFB Electronically Signed By: Ifeanyi Braxton 07-Mar-2018 20:23:42
[2018-03-08] MEDS: ceFAZolin 2 GM/DEXTROSE 100 ML IV SCH (05:27)
[2018-03-08] MEDS ORDERED: amLODIPine BESYLATE 5 MG TAB PO SCH (07:39)
[2018-03-08] MEDS: SENNOSIDES/DOCUSATE SODIUM TAB PO SCH (09:16)
[2018-03-08] MEDS: LISINOPRIL 40 MG TAB PO SCH (09:16)
[2018-03-08] MEDS: FINASTERIDE 5 MG TAB PO SCH (09:17)
[2018-03-08] MEDS: CHLORTHALIDONE 25 MG TAB PO SCH (09:18)
[2018-03-08] MEDS: ENOXAPARIN 40 MG/0.4 ML SYR SC SCH (09:18)
[2018-03-08] MEDS: PANTOPRAZOLE SODIUM 40 MG TAB PO SCH (09:18)
[2018-03-08] MEDS: FUROSEMIDE 40 MG TAB PO SCH (09:18)
[2018-03-08] MEDS: TAMSULOSIN HCL 0.4 MG CAP PO SCH (10:24)
--- NOTE | 2018-03-08 11:29 | HOSPPROG ---
Hospitalist Progress Note Assessment/Plan: Patient was admitted on March 01 with complaints of shortness of breath and vomiting. It was noted he had sepsis on admission. Today is my 1st encounter with the patient. Chart reviewed. MSSA bacteremia: unclear source. Negative TTE. h/o epidural abscess; MRI negative -4 wks IV abx (Cefazolin) -PICC in today #Bradycardia: asymptomatic. Hold BB #vasovagal event -occurred yesterday -talkative, none further, no arrythmia #Deconditioning: PT/OT. #Dementia #Traumatic subramanian injury: at home. Will need outpatient FU with Dr. Oconnor -keyla subramanian in at dc #Uncontrolled HTN: stop BB with bradycardia. Lisinopril 40mg, Chlorthalidone, changed home dose of Norvasc from 5 mg daily to 10 mg daily #Acute on chronic hypoxemic resp failure: usually oxygen at night. Due to acute illness #Severe sepsis: resolved #Lactic acidosis: from acute illness. Resolved with IVFs #DVT ppx: SCDs #plan: dc to rehab Subjective: Lan has no complaints, asked me not to call his . Objective: Vital Signs Temp Pulse Resp BP Pulse Ox 36.4 C 56 L 16 131/61 H 94 03/08/18 08:00 03/08/18 08:00 03/08/18 08:00 03/08/18 09:18 03/08/18 08:00 Laboratory Results 03/08/18 05:15 03/07/18 03/08/18 03/09/18 05:59 05:59 05:59 Intake Total 250 857 Output Total 600 1100 Balance -350 -243 PT 12.9 SEC (12.0-15.0) 03/01/18 12:30 INR 0.95 (0.83-1.16) 03/01/18 12:30 - Physical Exam Constitutional: not in pain, chronically ill appearing Eyes: PERRL Ears, Nose, Mouth, Throat: hard of hearing Cardiovascular: regular rate and rhythym, no murmur, rub, or gallop Respiratory: no respiratory distress, reduced air movement Skin: warm Musculoskeletal: generalized weakness Neurologic: AAOx3 Psychiatric: interacting appropriately, not encephalopathic ICD10 Worksheet Patient Problems: Problems Problem Status Onset Pneumonia Acute Severe sepsis Acute Constipation Acute Diverticulitis Acute Rectal bleed Acute
--- NOTE | 2018-03-08 11:30 | PDIAF ---
- Diagnosis Diagnosis: MSSA bacteremia Code Status: Full Code - Medication Management Discharge Medications: Medications to Continue on Transfer Finasteride [Proscar 5 MG (*)] 5 mg PO DAILY 10/10/16 [Last Taken 10/09/16] Furosemide [Lasix 40 MG (*)] 40 mg PO DAILY 10/10/16 [Last Taken 10/09/16] Lisinopril [Zestril 40 mg (*)] 40 mg PO DAILY 10/10/16 [Last Taken 10/09/16] Potassium Cl [Klor-Con 20 meq (*)] 20 meq PO HS 10/10/16 [Last Taken 10/09/16] Tamsulosin HCl [Flomax 0.4 MG (*)] 0.4 mg PO DAILY 10/10/16 [Last Taken 10/09/16 ] Tolterodine Tartrate [Detrol LA 2MG (*)] 2 mg PO DAILY 10/10/16 [Last Taken ] Pantoprazole Sodium [Protonix 40mg (*)] 40 mg PO BID 03/01/18 [Last Taken Unknown] Chlorthalidone [Chlorthalidone 25 mg (*)] 25 mg PO DAILY tab 03/07/18 [Last Taken Unknown] Polyethylene Glycol 3350 [Miralax 17 gm (*)] 17 gm PO DAILY PRN pkt 03/07/18 [ Last Taken Unknown] Sennosides/Docusate Sodium [Senokot-S] 1 - 2 tab PO BID tab 03/07/18 [Last Taken Unknown] amLODIPine BESYLATE [Norvasc 2.5 mg (*)] 5 mg PO DAILY #0 03/07/18 [Last Taken 10/09/16] Correction Antibiotics: Cefazolin 2 g IV Q 8 Correction Antibiotic Stop Date: 03/31/18 Discharge Medications: Refer to the Discharge Home Medication list for PRN reason. PICC Care - Routine: Yes - Orders Services needed: Physical Therapy, Occupational Therapy Isolation Type: None Diet Recommendation: no restrictions on diet Diet Texture: Regular Texture Diet Additional Instructions: follow up w Dr Oconnor for urinary retention, will need to leave subramanian in until you see him, make an appt to see in the next [address] Rodriguez patient needs strengthening and endurance exercises propranolol was stopped due to bradycardia Norvasc dose was increased to 5 mg from 2.5 mg chlorthalidone is a new med for your blood pressure - Labs/Radiology CBC w/diff Date: 03/12/18 (Weekly, Monday) CMP Date: 03/12/18 (Weekly, Monday) Call or Fax Lab and Imaging Results to: Ezequiel Buck MD [facility] at fax [phone] - Follow Up Care Current Providers and Referrals: Nabeel Oconnor MD [Medical Doctor] - Ezequiel Buck MD [Medical Doctor] - follow up in 1 week Patient,NotPresent [Unknown] - As per Instructions
[2018-03-08 11:43] VITALS: BP 134/61
--- NOTE | 2018-03-08 11:57 | GDS ---
[f rep st] DISCHARGE SUMMARY DISCHARGE DIAGNOSES: 1. Methicillin-sensitive Staphylococcus aureus bacteremia. 2. Bradycardia. 3. Vasovagal event that occurred on March 07. 4. Deconditioning. 5. Traumatic Lemons injury. 6. Uncontrolled hypertension. 7. Acute on chronic hypoxemic respiratory failure. 8. Severe sepsis. 9. Lactic acidosis. CONSULTATION: Dr. Issa Abarca. Briefly, the patient is an 87-year-old gentleman with a history of dementia, obstructive sleep apnea on 2 L at night, presented with shortness of breath and vomiting. He had a Lemons catheter in place that was pulled at home. When the patient removed it, he had a large amount of gross hematuria. EMS was called and found him very short of breath and multiple episodes of vomiting. He was admitted and noted to have severe sepsis with associated tachycardia. Initial concern was for pneumonia. Subsequently, he had blood cultures that were performed which grew out Staphylococcus aureus. He was seen and evaluated by Infectious Disease and placed on cefazolin. During his stay, he had a vasovagal event in which he became nonresponsive. Glucose was checked which showed some hyperglycemia. A CT of his head was performed which showed nothing acute. Prior to his discharge, he had a chest x-ray performed because of requiring oxygen. This showed a small right pleural effusion. He has bibasilar atelectasis versus scarring and stable cardiomegaly. Today, he will be discharged to [facility]. Case Management and the occ therapy asst will follow up with the to let her know about the patient's discharge. HOSPITAL COURSE BY PROBLEM: 1. MSSA bacteremia, unclear source. He had a negative TTE. MRI is negative in regard to his back. He is on 4 weeks of IV antibiotics. A PICC was placed. 2. Bradycardic. Have discontinued his beta davis. 3. Vasovagal event, resolved. 4. Deconditioning. Will get PT and OT. 5. Traumatic Lemons injury. Will leave the catheter in. Will have him follow up with Dr. Oconnor in the outpatient setting. 6. Uncontrolled hypertension, better. New medication is chlorthalidone and his Norvasc dose has been increased. 7. Acute on chronic hypoxemic respiratory failure. He wears oxygen at night. His chest x-ray shows nothing acute. 8. Severe sepsis, resolved. 9. Lactic acidosis, resolved. DISCHARGE CONDITION: Stable. Blood pressure is 131/61, heart rate 56, respiratory rate is 16, O2 saturation on 2 L are 98%, temperature 36.4 Celsius. MEDICATIONS AT DISCHARGE: Please see the EMR. DISCHARGE INSTRUCTIONS: 1. To follow up with Dr. Oconnor, to make an appointment so he can see him in the next 3 weeks. 2. To hold his propranolol. He has had ongoing bradycardia from this. 3. Norvasc dose has been increased. Greater than 30 minutes discharging and coordinating the patient's care. Copy requested to: Dr. Buck /[id number]/MODL MTDD
== END 2018-03-08 13:15 | DRG 871 ==
LOC: EDUNIT# → EDBD → F2N 18:19 → F3N 03-02 14:10 → F2N 03-07 16:24
PROVIDERS: ADMIT Internal Medicine; ATTEND Internal Medicine
PROC: 02HV33Z Insertion of Infusion Device into Superior Vena Cava, Percutaneous Approach (ICD-10-PCS; principal; 2018-03-07)
DX: A41.01 Sepsis due to Methicillin susceptible Staphylococcus aureus (principal); R65.20 Severe sepsis without septic shock; J96.21 Acute and chronic respiratory failure with hypoxia; T83.83XA Hemorrhage due to genitourinary prosthetic devices, implants and grafts, initial encounter; F03.90 Unspecified dementia, unspecified severity, without behavioral disturbance, psychotic disturbance, mood disturbance, and anxiety; N40.1 Benign prostatic hyperplasia with lower urinary tract symptoms; R35.0 Frequency of micturition; R00.1 Bradycardia, unspecified; G47.33 Obstructive sleep apnea (adult) (pediatric); R26.9 Unspecified abnormalities of gait and mobility; E87.2 Acidosis; I10 Essential (primary) hypertension; Z99.81 Dependence on supplemental oxygen; Z91.81 History of falling
CPT/HCPCS: 87449-90; 96374; 97116-GP; 97162-GP; 97165-GO; 97530-GO; 97530-GP; 97535-GO; A9585; C1751; G8978-GP-CK; G8979-GP-CJ; G8987-GO-CJ; G8988-GO-CI; G8989-GO-CJ; J0690; J0696; J1650; J1956

== ENCOUNTER 2018-03-21 23:57 | Emergency (ER) | payer OTHER ==
--- NOTE | 2018-03-22 00:01 | EDPHY ---
H & P Time Seen by Provider: 03/22/18 00:00 HPI/ROS: Chief Complaint: Lemons blockage HPI: 87-year-old male with a history of prostate disease with chronic Lemons catheters presenting with a nondraining catheter. Per EMS the patient pulled out his catheter yesterday morning. It was replaced by the staff in the group home but has not been draining all day. He has had some blood in the catheter bag. He is complaining of increasing discomfort. No fevers or chills. No nausea or vomiting. ROS: 10 point Review of Systems is negative except as noted in the HPI. Social History: No smoking, no alcohol, no recreational drug use Family History: non-contributory Physical Exam: Gen: Awake, Alert, No Distress HEENT: Nose: no rhinorrhea Eyes: PERRLA, EOMI Mouth: Moist mucosa Neck: Supple, no JVD Chest: nontender, lungs clear to auscultation Heart: S1, S2 normal, no murmur Abd: Soft, distended, no guarding Back: no CVA tenderness, no midline tenderness Ext: no edema, non-tender Skin: no rash Neuro: CN II-XII intact, Sensation grossly intact, Strength 5/5 in bilateral upper and lower extremities - Medical/Surgical History Hx Asthma: No Hx Chronic Respiratory Disease: No Hx Diabetes: No Hx Cardiac Disease: Yes Hx Renal Disease: No Hx Cirrhosis: No Hx Alcoholism: No Hx HIV/AIDS: No Hx Splenectomy or Spleen Trauma: No Other PMH: PMH- Hypertension, DIVERTICULOSIS. PSH- DETACHED RETINA REPAIR B EYE , BACK SURGERY S/P 6MONTHS AGO, BPH - Social History Smoking Status: Never smoked Constitutional: Initial Vital Signs Temperature (C) 36.8 C 03/22/18 00:00 Heart Rate 63 03/22/18 00:00 Respiratory Rate 16 03/22/18 00:00 Blood Pressure 131/62 H 03/22/18 00:00 O2 Sat (%) 91 L 03/22/18 00:00 O2 Delivery Mode Nasal Cannula O2 (L/minute) 3 Allergies/Adverse Reactions: No Known Allergies Allergy (Verified 11/01/17 22:05) Home Medications: Medication Instructions Recorded Finasteride [Proscar 5 MG (*)] 5 mg PO DAILY 10/10/16 Furosemide [Lasix 40 MG (*)] 40 mg PO DAILY 10/10/16 Lisinopril [Zestril 40 mg (*)] 40 mg PO DAILY 10/10/16 Potassium Cl [Klor-Con 20 meq (*)] 20 meq PO HS 10/10/16 Tamsulosin HCl [Flomax 0.4 MG (*)] 0.4 mg PO DAILY 10/10/16 Tolterodine Tartrate [Detrol LA 2 mg PO DAILY 10/10/16 2MG (*)] Pantoprazole Sodium [Protonix 40mg 40 mg PO BID 03/01/18 (*)] Chlorthalidone [Chlorthalidone 25 25 mg PO DAILY tab 03/07/18 mg (*)] Polyethylene Glycol 3350 [Miralax 17 gm PO DAILY PRN pkt 03/07/18 17 gm (*)] Sennosides/Docusate Sodium 1 - 2 tab PO BID tab 03/07/18 [Senokot-S] amLODIPine BESYLATE [Norvasc 2.5 5 mg PO DAILY #0 03/07/18 mg (*)] Medical Decision Making ED Course/Re-evaluation: Patient has 400 mL of urine in his bladder on bladder scanning. Nursing staff have replaced the Lemons catheter. They believe that the Lemons balloon was likely inflated in his urethra. When the advanced the Lemons the urine runs clear. Patient has drained without any difficulty. He is feeling improved. Will discharge back to group home, follow up with Urology for any concerns. Departure - Departure Disposition: Home, Routine, Self-Care Clinical Impression: Lemons catheter problem Condition: Good Instructions: Lemons Catheter Placement and Care (ED) Additional Instructions: Follow up with primary care physician in 2-3 days for further evaluation. Return to the emergency department if you're Lemons catheter is not draining, for fevers or chills, nausea vomiting, confusion, or any other concerns. Referrals: GASPER BEY [Other] - As per Instructions
[2018-03-22 01:58] VITALS: BP 134/60
== END 2018-03-22 03:00 | disposition home or self-care (01) ==
LOC: EDUNIT#
PROC: 0T9B70Z Drainage of Bladder with Drainage Device, Via Natural or Artificial Opening (ICD-10-PCS; principal; 2018-03-21)
DX: T83.098A Other mechanical complication of other urinary catheter, initial encounter (principal); I10 Essential (primary) hypertension; Y73.2 Prosthetic and other implants, materials and accessory gastroenterology and urology devices associated with adverse incidents

== ENCOUNTER 2018-11-08 14:20 | Inpatient (IN) | payer OTHER ==
[2018-11-08 14:44] LABS: PLATELET COUNT 299 10^3/uL (150-400)
--- NOTE | 2018-11-08 14:50 | EDPHY ---
H & P Time Seen by Provider: 11/08/18 14:49 HPI/ROS: Chief complaint. Difficulty breathing HPI. 88-year-old male with shortness of breath and cough for 2 weeks. Denies fever. Normally wears oxygen at night. He has dyspnea on exertion at home. His room air saturation at urgent care prior to arrival was 80% saturation. Denies chest pain. No abdominal pain. No unusual leg pain or swelling. No recent travel or known exposures. Symptoms are gradually worsening ROS 10 systems were reviewed and negative with the exception of the elements mentioned in the history of present illness Past Medical/Surgical History: Hypertension, detached retina, back surgery, BPH, diverticulosis, oxygen at night Social History: lives at home with . Nonsmoker, no alcohol Smoking Status: Never smoked Physical Exam: General Appearance: Alert well-developed male moderate distress vital signs show the patient be afebrile. Mild tachypnea. Blood pressure 235/93. 95% saturation on 2 L Eyes: Pupils equal and round no pallor or injection. ENT, Mouth: Mucous membranes are moist. Respiratory: Tachypnea. Inspiratory expiratory rhonchi Cardiovascular: Regular rate and rhythm. Bradycardia Gastrointestinal: Abdomen is soft and nontender, no masses, bowel sounds normal. Neurological: Awake and alert, sensory and motor exams grossly normal. Skin: Warm and dry, no rashes. Musculoskeletal: Neck is supple nontender. Extremities symmetrical, full range of motion. Psychiatric: Patient is oriented X 3, there is no agitation. Constitutional: Initial Vital Signs Temperature (C) 36.7 C 11/08/18 14:32 Heart Rate 46 L 11/08/18 14:32 Respiratory Rate 26 H 11/08/18 14:32 Blood Pressure 235/90 H 11/08/18 14:32 O2 Sat (%) 96 11/08/18 14:32 O2 Delivery Mode Nasal Cannula O2 (L/minute) 2 Allergies/Adverse Reactions: No Known Allergies Allergy (Verified 11/01/17 22:05) Home Medications: Medication Instructions Recorded Finasteride [Proscar 5 MG (*)] 5 mg PO DAILY 10/10/16 Furosemide [Lasix 40 MG (*)] 40 mg PO DAILY 10/10/16 Lisinopril [Zestril 40 mg (*)] 40 mg PO DAILY 10/10/16 Potassium Cl [Klor-Con 20 meq (*)] 20 meq PO HS 10/10/16 Tamsulosin HCl [Flomax 0.4 MG (*)] 0.4 mg PO DAILY 10/10/16 Tolterodine Tartrate [Detrol LA 2 mg PO DAILY 10/10/16 2MG (*)] Pantoprazole Sodium [Protonix 40mg 40 mg PO BID 03/01/18 (*)] Chlorthalidone [Chlorthalidone 25 25 mg PO DAILY tab 03/07/18 mg (*)] Polyethylene Glycol 3350 [Miralax 17 gm PO DAILY PRN pkt 03/07/18 17 gm (*)] Sennosides/Docusate Sodium 1 - 2 tab PO BID tab 03/07/18 [Senokot-S] amLODIPine BESYLATE [Norvasc 2.5 5 mg PO DAILY #0 03/07/18 mg (*)] Medical Decision Making - Diagnostics EKG Interpretation: EKG interpreted by me shows sinus bradycardia with right bundle branch block. Normal interval. No significant ST elevation or depression. Anterior ST T inversion. Rate 48 Imaging Results: Imaging Impressions Chest X-Ray 11/08/18 14:53 Impression: Bilateral lower lung zone pneumonia. Chest x-ray interpreted by me shows a left lower lobe pneumonia Procedures: IV normal saline. DuoNeb updraft Blood cultures and lactate Rocephin IV following blood cultures ED Course/Re-evaluation: RSV is positive Re-evaluation at 3:40 p.m. Patient is stable. He and I discussed imaging lab results. We discussed treatment plan including recommendation for admission. He expresses understanding and agreement I consulted and discussed case with Dr. Leon, hospitalist, who agrees with admission Differential Diagnosis: I considered pneumonia, influenza, RSV - Data Points Laboratory Results: Laboratory Results 11/08/18 14:30 11/08/18 14:30 11/08/18 11/08/18 11/08/18 14:35 14:30 14:30 WBC RBC Hgb Hct MCV MCH MCHC RDW Plt Count MPV Neut % (Auto) Lymph % (Auto) Chambers % (Auto) Eos % (Auto) Baso % (Auto) Nucleat RBC Rel Count Absolute Neuts (auto) Absolute Lymphs (auto) Absolute Monos (auto) Absolute Eos (auto) Absolute Basos (auto) Absolute Nucleated RBC Immature Gran % Immature Gran # Sodium 145 mEq/L mEq/L (135-145) Potassium 4.1 mEq/L mEq/L (3.5-5.2) Chloride 110 mEq/L mEq/L (97-110) Carbon Dioxide 26 mEq/l mEq/l (22-31) Anion Gap 9 mEq/L mEq/L (6-14) BUN 43 mg/dL H mg/dL (7-23) Creatinine 1.2 mg/dL mg/dL (0.7-1.3) Estimated GFR 57 Glucose 111 mg/dL H mg/dL (70-100) Calcium 9.9 mg/dL mg/dL (8.5-10.4) Total Bilirubin 0.8 mg/dL mg/dL (0.1-1.4) NT-Pro-B Natriuret Pep 55908 pg/mL H pg/mL (0-450) Nasal Influenza A PCR NEGATIVE FOR FLU A (NEGATIVE) Nasal Influenza B PCR NEGATIVE FOR FLU B (NEGATIVE) RSV (PCR) RSV DETECTED H (NEGATIVE) 11/08/18 14:30 WBC 8.94 10^3/uL 10^3/uL (3.80-9.50) RBC 5.14 10^6/uL 10^6/uL (4.40-6.38) Hgb 15.1 g/dL g/dL (13.7-17.5) Hct 47.3 % % (40.0-51.0) MCV 92.0 fL fL (81.5-99.8) MCH 29.4 pg pg (27.9-34.1) MCHC 31.9 g/dL L g/dL (32.4-36.7) RDW 14.8 % % (11.5-15.2) Plt Count 299 10^3/uL 10^3/uL (150-400) MPV 9.3 fL fL (8.7-11.7) Neut % (Auto) 74.8 % H % (39.3-74.2) Lymph % (Auto) 10.0 % L % (15.0-45.0) Chambers % (Auto) 13.5 % H % (4.5-13.0) Eos % (Auto) 0.7 % % (0.6-7.6) Baso % (Auto) 0.3 % % (0.3-1.7) Nucleat RBC Rel Count 0.0 % % (0.0-0.2) Absolute Neuts (auto) 6.69 10^3/uL H 10^3/uL (1.70-6.50) Absolute Lymphs (auto) 0.89 10^3/uL L 10^3/uL (1.00-3.00) Absolute Monos (auto) 1.21 10^3/uL H 10^3/uL (0.30-0.80) Absolute Eos (auto) 0.06 10^3/uL 10^3/uL (0.03-0.40) Absolute Basos (auto) 0.03 10^3/uL 10^3/uL (0.02-0.10) Absolute Nucleated RBC 0.00 10^3/uL 10^3/uL (0-0.01) Immature Gran % 0.7 % % (0.0-1.1) Immature Gran # 0.06 10^3/uL 10^3/uL (0.00-0.10) Sodium Potassium Chloride Carbon Dioxide Anion Gap BUN Creatinine Estimated GFR Glucose Calcium Total Bilirubin NT-Pro-B Natriuret Pep Nasal Influenza A PCR Nasal Influenza B PCR RSV (PCR) Medications Given: Discontinued Medications Ceftriaxone Sodium/Dextrose (Rocephin 1 Gm (Premix)) 50 mls @ 100 mls/hr IV EDNOW ONE PRN Reason: Protocol Stop: 11/08/18 15:40 Last Admin: 11/08/18 15:40 Dose: 50 mls Sodium Chloride (Ns) 1,000 mls @ 0 mls/hr IV EDNOW ONE; Wide Open PRN Reason: Protocol Stop: 11/08/18 15:13 Last Admin: 11/08/18 15:39 Dose: 1,000 mls Departure - Departure Disposition: [facility] Inpatient Acute Clinical Impression: Pneumonia Qualifiers: Pneumonia type: due to unspecified organism Laterality: bilateral Lung location : lower lobe of lung Qualified Code(s): J18.1 - Lobar pneumonia, unspecified organism Condition: Fair
[2018-11-08] MEDS ORDERED: ALBUTEROL 3 ML DEYVIAL IH ONE (14:58)
[2018-11-08] MEDS ORDERED: NS 1,000 ML IV ONE (15:12)
[2018-11-08] MEDS ORDERED: ONDANSETRON DISINTEGRATING 4 MG TAB PO PRN (16:30)
[2018-11-08] MEDS ORDERED: ACETAMINOPHEN 325 MG TAB PO PRN (16:30)
[2018-11-08] MEDS ORDERED: ALBUTEROL 3 ML DEYVIAL IH PRN (16:30)
[2018-11-08] MEDS ORDERED: ONDANSETRON 4 MG/2 ML VIAL IVP PRN (16:30)
[2018-11-08] MEDS ORDERED: hydrALAZINE 20 MG/ML VIAL IVP ONE (16:34)
[2018-11-08 17:13] LABS: INR 0.9 (0.83-1.16); PROTIME(PATIENT) 12.4 SEC (12.0-15.0)
--- NOTE | 2018-11-08 18:02 | PDGENHP ---
History and Physical - Chief Complaint cough, SOB - History of Present Illness 88 yo male with h/o hypertension, dementia and ENRIKE presents to ED with cough and SOB. He is a poor historian, but thinks his symptoms started 2-3 weeks ago with cough and fatigue. He has developed worsening cough, which is productive. He c/o difficulty breathing and wheezing. Denies CP, orthopnea or PND. He is not sure if he has had weight gain. Denies peripheral edema. Denies fevers. In the ED, CXR was suggestive of bibasilar PNA. RSV is positive. He is hypoxemic. He was given 1 L NS and 1g Ceftriaxone. He is admitted for further management. History Information - Allergies/Home Medication List Allergies/Adverse Reactions: No Known Allergies Allergy (Verified 11/08/18 16:04) Home Medications: Finasteride [Proscar 5 MG (*)] 5 mg PO DAILY 10/10/16 [Last Taken 10/09/16] Furosemide [Lasix 40 MG (*)] 40 mg PO DAILY 10/10/16 [Last Taken 10/09/16] Lisinopril [Zestril 40 mg (*)] 40 mg PO DAILY 10/10/16 [Last Taken 10/09/16] Potassium Cl [Klor-Con 20 meq (*)] 20 meq PO HS 10/10/16 [Last Taken 10/09/16] Tamsulosin HCl [Flomax 0.4 MG (*)] 0.4 mg PO DAILY 10/10/16 [Last Taken 10/09/16 ] Donepezil HCl [Aricept 5 MG (*)] 5 mg PO HS 11/08/18 [Last Taken Unknown] Mirabegron [Myrbetriq] 1 tab PO DAILY 11/08/18 [Last Taken Unknown] amLODIPine BESYLATE [Norvasc 2.5 mg (*)] 2.5 mg PO DAILY 11/08/18 [Last Taken Unknown] I have personally reviewed and updated: family history, medical history, social history, surgical history - Past Medical History hypertension Additional medical history: BPH. Dementia. ENRIKE on cpap - Surgical History Additional surgical history: back surgery for epidural abscess. retinal detachment - Family History Positive for: non-pertinent - Social History Smoking Status: Never smoked Alcohol Use: None Drug Use: None Additional social history: Lives independently with his Review of Systems Review of Systems: ROS: 10pt was reviewed & negative except for what was stated in HPI & below Physical Exam Physical Exam: Temp Pulse Resp BP Pulse Ox 36.4 C 58 L 20 216/91 H 94 11/08/18 16:27 11/08/18 15:53 11/08/18 16:27 11/08/18 16:55 11/08/18 16:27 O2 (L/minute) 4 Constitutional: no apparent distress Eyes: PERRL Ears, Nose, Mouth, Throat: moist mucous membranes Cardiovascular: regular rate and rhythym, JVD Respiratory: no respiratory distress, reduced air movement, expiratory wheeze Skin: warm Musculoskeletal: full muscle strength Neurologic: AAOx3 Psychiatric: poor memory Lab Data & Imaging Review 11/08/18 14:30 11/08/18 14:30 WBC 8.94 10^3/uL (3.80-9.50) 11/08/18 14:30 RBC 5.14 10^6/uL (4.40-6.38) 11/08/18 14:30 Hgb 15.1 g/dL (13.7-17.5) 11/08/18 14:30 Hct 47.3 % (40.0-51.0) 11/08/18 14:30 MCV 92.0 fL (81.5-99.8) 11/08/18 14:30 MCH 29.4 pg (27.9-34.1) 11/08/18 14:30 MCHC 31.9 g/dL (32.4-36.7) L 11/08/18 14:30 RDW 14.8 % (11.5-15.2) 11/08/18 14:30 Plt Count 299 10^3/uL (150-400) 11/08/18 14:30 MPV 9.3 fL (8.7-11.7) 11/08/18 14:30 Neut % (Auto) 74.8 % (39.3-74.2) H 11/08/18 14:30 Lymph % (Auto) 10.0 % (15.0-45.0) L 11/08/18 14:30 Isabella % (Auto) 13.5 % (4.5-13.0) H 11/08/18 14:30 Eos % (Auto) 0.7 % (0.6-7.6) 11/08/18 14:30 Baso % (Auto) 0.3 % (0.3-1.7) 11/08/18 14:30 Nucleat RBC Rel Count 0.0 % (0.0-0.2) 11/08/18 14:30 Absolute Neuts (auto) 6.69 10^3/uL (1.70-6.50) H 11/08/18 14:30 Absolute Lymphs (auto) 0.89 10^3/uL (1.00-3.00) L 11/08/18 14:30 Absolute Monos (auto) 1.21 10^3/uL (0.30-0.80) H 11/08/18 14:30 Absolute Eos (auto) 0.06 10^3/uL (0.03-0.40) 11/08/18 14:30 Absolute Basos (auto) 0.03 10^3/uL (0.02-0.10) 11/08/18 14:30 Absolute Nucleated RBC 0.00 10^3/uL (0-0.01) 11/08/18 14:30 Immature Gran % 0.7 % (0.0-1.1) 11/08/18 14:30 Immature Gran # 0.06 10^3/uL (0.00-0.10) 11/08/18 14:30 PT 12.4 SEC (12.0-15.0) 11/08/18 15:12 INR 0.90 (0.83-1.16) 11/08/18 15:12 APTT 30.6 SEC (23.0-38.0) 11/08/18 15:12 Sodium 145 mEq/L (135-145) 11/08/18 14:30 Potassium 4.1 mEq/L (3.5-5.2) 11/08/18 14:30 Chloride 110 mEq/L (97-110) 11/08/18 14:30 Carbon Dioxide 26 mEq/l (22-31) 11/08/18 14:30 Anion Gap 9 mEq/L (6-14) 11/08/18 14:30 BUN 43 mg/dL (7-23) H 11/08/18 14:30 Creatinine 1.2 mg/dL (0.7-1.3) 11/08/18 14:30 Estimated GFR 57 11/08/18 14:30 Glucose 111 mg/dL (70-100) H 11/08/18 14:30 Calcium 9.9 mg/dL (8.5-10.4) 11/08/18 14:30 Total Bilirubin 0.8 mg/dL (0.1-1.4) 11/08/18 14:30 NT-Pro-B Natriuret Pep 45398 pg/mL (0-450) H 11/08/18 14:30 Nasal Influenza A PCR NEGATIVE FOR FLU A (NEGATIVE) 11/08/18 14:35 Nasal Influenza B PCR NEGATIVE FOR FLU B (NEGATIVE) 11/08/18 14:35 RSV (PCR) RSV DETECTED (NEGATIVE) H 11/08/18 14:35 Visualized and Interpreted Chest x-ray results: Yes Chest X-Ray results: infiltrate Assessment & Plan Assessment: Acute hypoxemic respiratory failure 2/2 viral URI +/- bacterial PNA - +RSV. Uses 2 LPM O2 at night at baseline, requiring 4 LPM here. Presented with increased WOB and audible wheezing. No fever, hypotension or signs of sepsis. -duonebs, prn albuterol -guaifenesin, anti-tussives -cont ceftriaxone plus azithro for possible bacterial PNA (PCT slightly elevated) -wean O2 as above Chronic diastolic HF - elevated BNP. He does have a bit of JVD, but no peripheral edema. May have increased strain 2/2 viral URI. Reviewed 02/2018 echo, nl EF, +diastolic dysfunction -defer Lasix tonight with e/o REID, resume home dose in am REID - baseline Cr 0.8, currently 1.2 with azotemia suggesting pre-renal -s/p 1 L NS in ED -will provide very gentle hydration overnight, but likely needs to resume diuretics in am Hypertension - BP markedly elevated upon arrival -prn hydralazine -resume home lisinopril, amlodipine (unclear if he took these today) ENRIKE - CPAP BPH - cont home meds Dementia - cont home meds Full code DVT PPLX - Lovenox Dispo - admit to inpt, anticipate >48 hrs hospitalization for ongoing management of hypoxemia and viral URI
[2018-11-08] MEDS ORDERED: GUAIFENESIN/DM 10 ML UDCUP PO PRN (18:12)
[2018-11-08] MEDS: predniSONE 20 MG TAB PO SCH (18:28)
[2018-11-08] MEDS: IPRATROPIUM/ALBUTEROL 3 ML DEYVIAL IH SCH ×2 (18:43→20:31)
--- NOTE | 2018-11-08 20:47 | CPEKG ---
Test Reason : OPEN Blood Pressure : / mmHG Vent. Rate : 048 BPM Atrial Rate : 048 BPM P-R Int : 183 ms QRS Dur : 150 ms QT Int : 524 ms P-R-T Axes : -20 075 -56 degrees QTc Int : 469 ms Sinus bradycardia Right bundle branch block Confirmed by Ezequiel Mark ([id number]) on 11/08/2018 8:46:38 PM Referred By: PHYSICIAN ED Confirmed By:Ezequiel Mark
[2018-11-08] MEDS: guaiFENesin 600 MG TAB.ER PO SCH (21:42)
[2018-11-08] MEDS: DONEPEZIL HCL 5 MG TAB PO SCH (21:42)
[2018-11-08] MEDS: POTASSIUM CL 20 MEQ TAB PO SCH (21:42)
[2018-11-08] MEDS: hydrALAZINE 20 MG/ML VIAL IVP PRN (21:44)
[2018-11-09 03:38] LABS: PLATELET COUNT 245 10^3/uL (150-400)
[2018-11-09] MEDS: hydrALAZINE 20 MG/ML VIAL IVP PRN ×3 (03:45→17:48)
[2018-11-09] MEDS: IPRATROPIUM/ALBUTEROL 3 ML DEYVIAL IH SCH ×2 (05:25→11:31)
[2018-11-09] MEDS: FINASTERIDE 5 MG TAB PO SCH (08:25)
[2018-11-09] MEDS: ENOXAPARIN 40 MG/0.4 ML SYR SC SCH (08:31)
[2018-11-09] MEDS: guaiFENesin 600 MG TAB.ER PO SCH ×2 (08:33→19:54)
[2018-11-09] MEDS: predniSONE 20 MG TAB PO SCH (08:34)
[2018-11-09] MEDS: TAMSULOSIN HCL 0.4 MG CAP PO SCH (08:35)
[2018-11-09] MEDS: LISINOPRIL 40 MG TAB PO SCH (08:35)
[2018-11-09] MEDS: FUROSEMIDE 40 MG TAB PO SCH (08:35)
[2018-11-09] MEDS: MIRABEGRON PO SCH (08:41)
--- NOTE | 2018-11-09 08:44 | PDMN ---
Medical Necessity Medical necessity: Pt meets IP criteria as of 11/08/2018 per and THERESE [id number] ( Pneumonia, community acquired); est los > 2 mn for ongoing tx and management of acute hypoxemic respiratory failure in the setting of pneumonia with increased WOB, increased O2 demand and audible wheezing; requiring scheduled and PRN nebulizers, anti-tussives, IV ABX, PT/OT, and management of other conditions including CHF, REID, HTN, ENRIKE, BPH, and dementia.
[2018-11-09] MEDS ORDERED: AZITHROMYCIN IV 500 MG in NS 250 ML IV SCH (09:00)
[2018-11-09] MEDS: BENZONATATE 100 MG CAP PO PRN ×2 (13:43→19:54)
[2018-11-09] MEDS ORDERED: amLODIPine BESYLATE 5 MG TAB PO ONE (15:45)
--- NOTE | 2018-11-09 15:48 | HOSPPROG ---
Hospitalist Progress Note Assessment/Plan: #Acute Hypoxic Respiratory Failure #Bilateral Bacterial vs infectious pneumonia #RSV #Acute Bronchitis #CHF, unclear if systolic vs diastolic #REID, on admission #HTN #Dementia #ENRIKE #Prolonged QT Plan: cont Prednisone cont Rocephin Nebs PRN Stop Azithromycin Stop IVF Restart home diuretics Increase Amlodipine Lovenox cont inpatient care Subjective: bp is elavated. He feels better. no cp or sob. Objective: Vital Signs Temp Pulse Resp BP Pulse Ox 36.5 C 86 24 H 161/78 H 95 11/09/18 11:44 11/09/18 11:44 11/09/18 11:44 11/09/18 11:44 11/09/18 11:44 Microbiology 11/09/18 06:10 Respiratory Panel (PCR) - Final Nasal, Sinus - Swab Respiratory Syncytial Virus Laboratory Results 11/09/18 03:22 11/09/18 03:22 11/08/18 11/09/18 11/10/18 05:59 05:59 05:59 Intake Total 100 Balance 100 PT 12.4 SEC (12.0-15.0) 11/08/18 15:12 INR 0.90 (0.83-1.16) 11/08/18 15:12 - Physical Exam Constitutional: no apparent distress, appears nourished, not in pain Eyes: PERRL, EOMI Ears, Nose, Mouth, Throat: moist mucous membranes Cardiovascular: regular rate and rhythym, No edema Respiratory: no respiratory distress, reduced air movement Gastrointestinal: normoactive bowel sounds, soft, non-tender abdomen Skin: warm Neurologic: No AAOx3 Psychiatric: interacting appropriately, not anxious, encephalopathic Lymph, Heme, Immunologic: No petechiae ICD10 Worksheet Patient Problems: Problems Problem Status Onset Pneumonia Acute chronic disease mgmt/transitional care Acute Constipation Acute Diverticulitis Acute Rectal bleed Acute Severe sepsis Acute
--- NOTE | 2018-11-09 16:37 | ASMTCMCOM ---
CM Note CM Note Notes: Pt is a 88 y/o man admitted for a cough and shortness of breathe. Pt has a hx of dementia and hypertension. CM met w/ pt for dispo planning. PT is recommending SNF. Pt reports that he just wants to d/c home. Pt has been to [facility] in the past. CM asked if he has had HC services and he says he has. Pt is not interested in HC services either. CM called pts and left a msg for a call back. Needs are TBD at this time. CM to follow. Plan: TBD Date Signed: 11/09/2018 04:37 PM Electronically Signed By:EDUAR Barba
[2018-11-09] MEDS: DONEPEZIL HCL 5 MG TAB PO SCH (19:54)
[2018-11-09] MEDS: POTASSIUM CL 20 MEQ TAB PO SCH (19:54)
[2018-11-10] MEDS: hydrALAZINE 20 MG/ML VIAL IVP PRN ×2 (00:17→10:58)
[2018-11-10] MEDS: BENZONATATE 100 MG CAP PO PRN (05:15)
[2018-11-10] MEDS: LISINOPRIL 40 MG TAB PO SCH (09:08)
[2018-11-10] MEDS: ENOXAPARIN 40 MG/0.4 ML SYR SC SCH (09:08)
[2018-11-10] MEDS: FINASTERIDE 5 MG TAB PO SCH (09:08)
[2018-11-10] MEDS: guaiFENesin 600 MG TAB.ER PO SCH ×2 (09:08→20:27)
[2018-11-10] MEDS: MIRABEGRON PO SCH (09:08)
[2018-11-10] MEDS: predniSONE 20 MG TAB PO SCH (09:08)
[2018-11-10] MEDS: FUROSEMIDE 40 MG TAB PO SCH (09:08)
[2018-11-10] MEDS: TAMSULOSIN HCL 0.4 MG CAP PO SCH (09:08)
[2018-11-10] MEDS: IPRATROPIUM/ALBUTEROL 3 ML DEYVIAL IH SCH ×3 (11:58→21:17)
[2018-11-10] MEDS ORDERED: FUROSEMIDE 20 MG/2 ML VIAL IVP ONE (14:00)
--- NOTE | 2018-11-10 14:04 | HOSPPROG ---
Hospitalist Progress Note Assessment/Plan: #Acute Hypoxic Respiratory Failure #Bilateral Bacterial vs infectious pneumonia #RSV #Acute Bronchitis #CHF, unclear if systolic vs diastolic #REID, on admission #HTN, very elevated #Dementia #ENRIKE #Prolonged QT Plan: cont Prednisone cont Rocephin Reschedule nebs Stopped Azithromycin on 11/09 Stopped IVF on 11/09 Cont Lasix 40mg daily. Additional dose today. Increase Amlodipine again today Lovenox cont inpatient care Subjective: no cp. no leg swelling. Still with SOB. Objective: Vital Signs Temp Pulse Resp BP Pulse Ox 36.7 C 82 20 162/79 H 92 11/10/18 11:47 11/10/18 12:13 11/10/18 12:13 11/10/18 11:47 11/10/18 12:13 Microbiology 11/09/18 06:10 Respiratory Panel (PCR) - Final Nasal, Sinus - Swab Respiratory Syncytial Virus Laboratory Results 11/09/18 03:22 11/10/18 03:05 11/09/18 11/10/18 11/11/18 05:59 05:59 05:59 Intake Total 100 780 Balance 100 780 PT 12.4 SEC (12.0-15.0) 11/08/18 15:12 INR 0.90 (0.83-1.16) 11/08/18 15:12 - Physical Exam Constitutional: no apparent distress Eyes: PERRL, EOMI Ears, Nose, Mouth, Throat: moist mucous membranes, hearing normal Cardiovascular: regular rate and rhythym, No edema Respiratory: no respiratory distress, reduced air movement Gastrointestinal: normoactive bowel sounds, soft, non-tender abdomen Skin: warm Neurologic: AAOx3 Psychiatric: interacting appropriately, not anxious, not encephalopathic ICD10 Worksheet Patient Problems: Problems Problem Status Onset Pneumonia Acute chronic disease mgmt/transitional care Acute Constipation Acute Diverticulitis Acute Rectal bleed Acute Severe sepsis Acute
[2018-11-10] MEDS ORDERED: amLODIPine BESYLATE 5 MG TAB PO ONE (14:15)
[2018-11-10] MEDS: POTASSIUM CL 20 MEQ TAB PO SCH (20:27)
[2018-11-10] MEDS: DONEPEZIL HCL 5 MG TAB PO SCH (20:27)
[2018-11-11] MEDS: IPRATROPIUM/ALBUTEROL 3 ML DEYVIAL IH SCH ×4 (05:18→20:58)
[2018-11-11] MEDS: hydrALAZINE 20 MG/ML VIAL IVP PRN (06:28)
[2018-11-11] MEDS: ENOXAPARIN 40 MG/0.4 ML SYR SC SCH (09:14)
[2018-11-11] MEDS: LISINOPRIL 40 MG TAB PO SCH (09:15)
[2018-11-11] MEDS: FINASTERIDE 5 MG TAB PO SCH (09:15)
[2018-11-11] MEDS: guaiFENesin 600 MG TAB.ER PO SCH ×2 (09:15→19:57)
[2018-11-11] MEDS: predniSONE 20 MG TAB PO SCH (09:15)
[2018-11-11] MEDS: FUROSEMIDE 40 MG TAB PO SCH (09:15)
[2018-11-11] MEDS: TAMSULOSIN HCL 0.4 MG CAP PO SCH (09:15)
[2018-11-11] MEDS: MIRABEGRON PO SCH (09:16)
[2018-11-11] MEDS: hydrALAZINE 10 MG TAB PO SCH ×3 (12:43→20:00)
--- NOTE | 2018-11-11 14:43 | HOSPPROG ---
Hospitalist Progress Note Assessment/Plan: #Acute Hypoxic Respiratory Failure #Bilateral Bacterial vs infectious pneumonia #RSV #Acute Bronchitis #CHF, unclear if systolic vs diastolic #REID, on admission #HTN, very elevated #Dementia #ENRIKE #Prolonged QT Plan: Overall is improving. Resp status is considerably better cont Prednisone cont Rocephin cont nebs Stopped Azithromycin on 11/09 Stopped IVF on 11/09 Cont Lasix 40mg daily. Additional dose was given on 11/10. no need for additional today cont Amlodipine Start scheduled Hydralazine Lovenox cont inpatient care Anticipate d/c is 1-2 days Subjective: sob is present but better. resp rate has improved. no cp. still with HTN Objective: Vital Signs Temp Pulse Resp BP Pulse Ox 36.2 C 90 15 163/76 H 91 L 11/11/18 11:51 11/11/18 11:51 11/11/18 11:51 11/11/18 11:51 11/11/18 11:51 Laboratory Results 11/09/18 03:22 11/10/18 03:05 11/10/18 11/11/18 11/12/18 05:59 05:59 05:59 Intake Total 780 100 240 Balance 780 100 240 PT 12.4 SEC (12.0-15.0) 11/08/18 15:12 INR 0.90 (0.83-1.16) 11/08/18 15:12 - Physical Exam Constitutional: no apparent distress Eyes: PERRL Ears, Nose, Mouth, Throat: moist mucous membranes Cardiovascular: regular rate and rhythym, No edema Respiratory: reduced air movement, expiratory wheeze Gastrointestinal: normoactive bowel sounds, soft, non-tender abdomen Skin: warm Neurologic: AAOx3 Psychiatric: interacting appropriately, not anxious, not encephalopathic Lymph, Heme, Immunologic: No petechiae ICD10 Worksheet Patient Problems: Problems Problem Status Onset Pneumonia Acute chronic disease mgmt/transitional care Acute Constipation Acute Diverticulitis Acute Rectal bleed Acute Severe sepsis Acute
[2018-11-11] MEDS: POTASSIUM CL 20 MEQ TAB PO SCH (19:57)
[2018-11-11] MEDS: DONEPEZIL HCL 5 MG TAB PO SCH (19:57)
[2018-11-12] MEDS: IPRATROPIUM/ALBUTEROL 3 ML DEYVIAL IH SCH ×4 (06:28→21:14)
[2018-11-12] MEDS: FINASTERIDE 5 MG TAB PO SCH (09:00)
[2018-11-12] MEDS: FUROSEMIDE 40 MG TAB PO SCH (09:00)
[2018-11-12] MEDS: TAMSULOSIN HCL 0.4 MG CAP PO SCH (09:00)
[2018-11-12] MEDS: ENOXAPARIN 40 MG/0.4 ML SYR SC SCH (09:01)
[2018-11-12] MEDS: hydrALAZINE 10 MG TAB PO SCH ×3 (09:01→23:02)
[2018-11-12] MEDS: LISINOPRIL 40 MG TAB PO SCH (09:01)
[2018-11-12] MEDS: guaiFENesin 600 MG TAB.ER PO SCH ×2 (09:01→19:51)
[2018-11-12] MEDS: predniSONE 20 MG TAB PO SCH (09:01)
[2018-11-12] MEDS: MIRABEGRON PO SCH (09:02)
--- NOTE | 2018-11-12 14:23 | HOSPPROG ---
Hospitalist Progress Note Assessment/Plan: 88yo M with CHF, dementia here with RSV and respiratory failure. 1. Acute hypoxemic respiratory failure: Due to pneumonia - Still on 2-3L 2. Bilateral pneumonia: Treating for CAP on top of viral process. - Continue 1 more day of ceftriaxone 3. RSV bronchitis: Still wheezing - Continue duonebs, steroids 4. Chronic CHF: Euvolemic. - Continue home lasix 5. HTN: BP ok, cont home amlodipine. 6. REID: Resolved. VTE ppx: LMWH Code: Full, per my discussion with patient today Dispo: Remain inpatient, unsafe for discharge. PT/OT recommending SNF but patient refusing. He is also refusing HHC. Will need to further discuss as I am worried that he won't succeed without some additional help at home. Subjective: Wanting to go home. Breathing better. Objective: Vital Signs Temp Pulse Resp BP Pulse Ox 36.8 C 73 18 156/71 H 93 11/12/18 08:00 11/12/18 11:02 11/12/18 11:02 11/12/18 08:00 11/12/18 11:02 Laboratory Results 11/09/18 03:22 11/10/18 03:05 11/11/18 11/12/18 11/13/18 05:59 05:59 05:59 Intake Total 100 1520 290 Output Total 102 Balance 100 1418 290 PT 12.4 SEC (12.0-15.0) 11/08/18 15:12 INR 0.90 (0.83-1.16) 11/08/18 15:12 - Physical Exam Constitutional: no apparent distress Eyes: PERRL, anicteric sclera, EOMI Ears, Nose, Mouth, Throat: moist mucous membranes, hearing normal, ears appear normal, no oral mucosal ulcers Cardiovascular: regular rate and rhythym, no murmur, rub, or gallop, No edema Respiratory: reduced air movement, expiratory wheeze, respiratory distress ( with minimal exertion), No inspiratory crackles Gastrointestinal: normoactive bowel sounds, soft, non-tender abdomen, no palpable masses Genitourinary: no bladder fullness, no bladder tenderness, no renal bruits Skin: no rashes or abrasions, no fluctuance, no induration Musculoskeletal: full muscle strength, no muscle tenderness, normal joint ROM Neurologic: AAOx3, sensation intact bilaterally Psychiatric: interacting appropriately ICD10 Worksheet Patient Problems: Problems Problem Status Onset Pneumonia Acute chronic disease mgmt/transitional care Acute Constipation Acute Diverticulitis Acute Rectal bleed Acute Severe sepsis Acute
--- NOTE | 2018-11-12 15:59 | ASMTCMCOM ---
CM Note CM Note Notes: I had a long conversation with patient's Iqra regarding discharge planning. She is aware that patient does not want to go to SNF or have any home health; apparently he has been to [facility] twice. She feels resigned to be his caregiver and she feels that she can help him to the best of her abilities. They have a son who lives in [place] w his family, but Iqra does not feel comfortable asking him for help. She says that "at his age, he'll do damn well what he pleases." I offered to give her a list of private duty caregivers; she says that she has a list and will reach out if she needs to. Case Management available if the patient or 's desires change. Date Signed: 11/12/2018 03:59 PM Electronically Signed By:Zonia Cortes RN
[2018-11-12] MEDS: POTASSIUM CL 20 MEQ TAB PO SCH (19:51)
[2018-11-12] MEDS: DONEPEZIL HCL 5 MG TAB PO SCH (19:51)
[2018-11-13] MEDS: IPRATROPIUM/ALBUTEROL 3 ML DEYVIAL IH SCH ×3 (05:50→16:12)
[2018-11-13] MEDS: hydrALAZINE 10 MG TAB PO SCH (08:49)
[2018-11-13] MEDS: TAMSULOSIN HCL 0.4 MG CAP PO SCH (08:49)
[2018-11-13] MEDS: FUROSEMIDE 40 MG TAB PO SCH (08:49)
[2018-11-13] MEDS: LISINOPRIL 40 MG TAB PO SCH (08:49)
[2018-11-13] MEDS: predniSONE 20 MG TAB PO SCH (08:49)
[2018-11-13] MEDS: FINASTERIDE 5 MG TAB PO SCH (08:49)
[2018-11-13] MEDS: guaiFENesin 600 MG TAB.ER PO SCH (08:49)
[2018-11-13] MEDS: ENOXAPARIN 40 MG/0.4 ML SYR SC SCH (08:49)
[2018-11-13] MEDS: MIRABEGRON PO SCH (08:50)
[2018-11-13 09:12] VITALS: BP 160/67
--- NOTE | 2018-11-13 11:44 | PDHOMEO2F ---
Home Oxygen Face to Face Home Orders: I certify that a physician or a nurse practitioner or physician's library assistant has had a [id number] encounter with this patient on the date of this order due to the diagnosis listed, which relates to the primary reason the patient requires home oxygen. Alternative treatments have been tried, or considered, and deemed ineffective. It is anticipated that supplemental oxygen will result in improvement with treatment. Home oxygen qualifying diagnosis: respiratory failure with hypoxia SpO2 on room air (%): 84 Frequency of home oxygen needed: continuous Home oxygen liters per minute: 2 Home oxygen delivery device: nasal cannula Concentrator: Yes E-tanks for mobility and back up: Yes If ordering portable O2, is the patient mobile in the home?: Yes I certify that, based on these findings, the home oxygen is medically necessary for this patient for the following length of time. Length of time home oxygen needed: 99 years
--- NOTE | 2018-11-13 15:39 | PDDCSUM ---
Discharge Summary Discharge Summary: Date of Admission: 11/08/2018 Date of Discharge: 11/13/2018 Consultants: none Studies: CXR Discharge Diagnoses: 1. Acute hypoxemic respiratory failure due to 2. RSV upper respiratory infection, and suspected superimposed 3. Community acquired bacterial pneumonia 4. Chronic diastolic CHF 5. HTN 6. REID, resolved 7. Dementia 8. ENRIKE Brief Hospital Course: 88yo M with dCHF, dementia here with 2 weeks of worsening shortness of breath. Respiratory viral PCR was positive for RSV. His procalcitonin was also elevated and he was treated for community acquired pneumonia as well with ceftriaxone. He completed antibiotics while in the hospital. He was requiring 2-3L of supplemental oxygen at discharge and was instructed to complete 5 more days of steroids. He was euvolemic and continued on his home diuretic. Of note, our therapy services were recommending home health PT/OT however the patient declined this. Medications: Please refer to EMR for complete list. I wrote prescriptions for albuterol inhaler PRN and prednisone 20mg x5 more days. Follow Up Plan: 1. PCP visit in 1 week Physical Exam: Vitals reviewed, afebrile. Alert and oriented, RRR, lungs with significantly improved breath sounds without wheezes, no leg edema or JVD, no rashes, abdomen soft and nontender.
--- NOTE | 2018-11-13 15:47 | ASMTLACE ---
LACE Length of stay for Answers: 4-6 days current admission Acuity / Level of Answers: Yes Care: Did the patient have an inpatient admission? Comorbidities - select Answers: Dementia all that apply Other Notes: HTN; Diverticulosis # of Emergency department Answers: 1-2 visits in the last 6 months Score: 12 Date Signed: 11/13/2018 03:46 PM Electronically Signed By:Vilma Oconnor
--- NOTE | 2018-11-13 16:02 | ASMTDCNOTE ---
Case Management Discharge Discharge Order Complete? Answers: Yes Patient to Obtain Answers: Independently Medications Transportation Arranged Answers: Other Notes: [facility] w/c Transport will Pick (Date 11/13/2018 04:30 PM & Time) EMTALA Complete Answers: No Case Management Transport Answers: No Form Complete Faxed Final Orders Answers: No Agency/Facility Transfer Answers: No Report Printed & Faxed to Receiving Agency Family Notified Answers: Yes Notes: notified of d/c ti me Discharge Comments Notes: Pt's case discussed in rounds. Pt continues to refuse Home care and SNF. CM spoke to Pt 's and feels she can not force him to participate in services he does not want to do. 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 Pt's report if Pt physically declines she will set up Home care. Pt agreed to Pay for [facility] because he requires O2 during transport. Not other needs at this time. CM available should needs arise. Plan: Home Independantly w/ family support. Date Signed: 11/13/2018 04:01 PM Electronically Signed By:Vilma Oconnor
== END 2018-11-13 16:36 | disposition home or self-care (01) | DRG 177 ==
LOC: EDUNIT# → F2W 16:05
PROVIDERS: ADMIT Hospitalist; ATTEND Family Medicine
DX: J15.8 Pneumonia due to other specified bacteria (principal); J96.01 Acute respiratory failure with hypoxia; I11.0 Hypertensive heart disease with heart failure; I50.32 Chronic diastolic (congestive) heart failure; N17.9 Acute kidney failure, unspecified; E86.9 Volume depletion, unspecified; J06.9 Acute upper respiratory infection, unspecified; B97.4 Respiratory syncytial virus as the cause of diseases classified elsewhere; F03.90 Unspecified dementia, unspecified severity, without behavioral disturbance, psychotic disturbance, mood disturbance, and anxiety; G47.33 Obstructive sleep apnea (adult) (pediatric); N40.0 Benign prostatic hyperplasia without lower urinary tract symptoms
CPT/HCPCS: 92610-GN; 96374; 97110-GP; 97116-GP; 97162-GP; 97165-GO; 97530-GO; 97530-GP; 97535-GO; J0360; J0456; J0696; J1650; J1940; J7512; J7613